=== PATIENT | male | born 1930 | race African-American/Black ===

== ENCOUNTER 2017-11-30 10:54 | Emergency (ER) | payer MEDICARE ==
[2017-11-30 12:14] LABS: #Eosinphils 0.2 thou/uL (0.0-0.7); #Lymphocytes 1.5 thou/uL (1.20-3.40); #Monocytes 0.6 thou/uL (0.11-0.59); #Neutrophils 12.5 thou/uL (1.40-6.50); %Basophils 0.2 % (0.0-1.0); %Eosinophils 1.6 % (0.0-10.0); %Lymphocytes 10.1 % (21.0-51.0); %Monocytes 4.2 % (0.0-10.0); %Neutrophils 83.9 % (42.0-75.0); Hemoglobin 8.2 g/dL (14.0-18.0); Mean Corpuscular HGB CONC 30.7 g/dL (32.0-36.0); Mean Corpuscular Hemoglobin 29.9 pg (27.0-31.0); Mean Corpuscular Volume 97.4 fl (80.0-94.0); Mean Platelet Volume 8.9 fL (7.4-10.4); Platelet Count 295 thou/uL (130-400); RBC Distribution Width 15.7 % (11.5-14.5); Red Blood Cell (RBC) Count 2.74 mill/uL (4.70-6.10); White Blood Cell (WBC) Count 14.9 thou/uL (4.8-10.8)
[2017-11-30 12:32] LABS: ALT (SGPT) 20 U/L (8-55); AST (SGOT) 19 U/L (5-34); Albumin 4.2 g/dL (3.4-4.8); Alkaline Phosphatase 154 U/L (40-150); Anion Gap 11 mmol/L (10-20); BUN (Urea Nitrogen) 28 mg/dL (8.4-25.7); Bilirubin, Total 0.3 mg/dL (0.2-1.2); Calc. Creatinine Clearance 0 mL/min (70-130); Calcium 9.5 mg/dL (7.8-10.44); Carbon Dioxide 25 mmol/L (23-31); Chloride 108 mmol/L (98-107); Estimated GFR-MDRD 43; Globulin 3.3 g/dL (2.4-3.5); Glucose 97 mg/dL (83-110); Potassium 3.8 mmol/L (3.5-5.1); Protein, Total 7.5 g/dL (5.8-8.1); Sodium 140 mmol/L (136-145)
[2017-11-30] MEDS ORDERED: Naproxen 500 MG TAB ONE (14:16)
--- NOTE | 2017-11-30 16:03 | RAD ---
THREE VIEWS LEFT ELBOW 11/30/17 HISTORY: Left upper extremity pain and swelling. 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 No obvious fracture or dislocation is seen. There is osteopenia. There is a large joint effus ion with elevation of both posterior and anterior fat pads. IMPRESSION: 1. Large joint effusion. This can be seen with a radiographically occult fracture, but other e tiologies for joint effusion cannot be excluded. If the patient has history of recent injury, and the re is concern for fracture, followup views of the elbow are recommended in 4-7 days to exclude an occ ult fracture. 2. Osteoarthritis left elbow without acute osseous abnormality appreciated. POS: [facility]
== END 2017-11-30 13:13 | disposition home or self-care (01) ==
LOC: ERS 10:54
DX: M70.32 Other bursitis of elbow, left elbow (principal); I10 Essential (primary) hypertension; M19.90 Unspecified osteoarthritis, unspecified site; F17.210 Nicotine dependence, cigarettes, uncomplicated
CPT/HCPCS: 36415; 80053; 84550; 85025; 85652; 86140

== ENCOUNTER 2018-09-29 14:55 | Emergency (ER) | payer MEDICARE ==
[2018-09-29 15:19] LABS: Actual Bicarbonate (HCO3a) 29.7 mEq/L (22-28); Analyzer IN Cardio ER; Base Excess (BEa) 5.1 mEq/L (-2.0 to +3.0); CO2 Tension 43.7 mmHg (35.0-45.0); Carboxyhemoglobin (COHb) 2.6 gm% (0.0-3.0); Hemoglobin (Hb) 11.9 g/dL (14.0-18.0); O2 Tension (PaO2) 73.4 mmHg (> 60.0); pH, Arterial 7.45 (7.35-7.45)
[2018-09-29 15:22] LABS: ALV-art Gradient 21.705 (0-20); Puncture Site RRA
[2018-09-29 15:31] LABS: #Eosinphils 0.5 thou/uL (0.0-0.7); #Lymphocytes 1.8 thou/uL (1.20-3.40); #Monocytes 0.7 thou/uL (0.11-0.59); #Neutrophils 6.9 thou/uL (1.40-6.50); %Basophils 0.4 % (0.0-1.0); %Eosinophils 4.6 % (0.0-10.0); %Lymphocytes 18.1 % (21.0-51.0); %Monocytes 6.7 % (0.0-10.0); %Neutrophils 70.2 % (42.0-75.0); Hemoglobin 11.1 g/dL (14.0-18.0); Mean Corpuscular HGB CONC 30.6 g/dL (32.0-36.0); Mean Corpuscular Hemoglobin 27.7 pg (27.0-31.0); Mean Corpuscular Volume 90.5 fL (78.0-98.0); Mean Platelet Volume 9.9 fL (7.4-10.4); Platelet Count 300 thou/uL (130-400); RBC Distribution Width 13.9 % (11.5-14.5); Red Blood Cell (RBC) Count 4.03 mill/uL (4.70-6.10); White Blood Cell (WBC) Count 9.8 thou/uL (4.8-10.8)
[2018-09-29 15:56] LABS: ALT (SGPT) 7 U/L (8-55); AST (SGOT) 10 U/L (5-34); Albumin 3.7 g/dL (3.4-4.8); Alkaline Phosphatase 120 U/L (40-150); Anion Gap 12 mmol/L (10-20); BUN (Urea Nitrogen) 23 mg/dL (8.4-25.7); Bilirubin, Total 0.5 mg/dL (0.2-1.2); Calc. Creatinine Clearance 0 mL/min (70-130); Calcium 9.7 mg/dL (7.8-10.44); Carbon Dioxide 29 mmol/L (23-31); Chloride 101 mmol/L (98-107); Estimated GFR-MDRD 44; Globulin 3.6 g/dL (2.4-3.5); Glucose 101 mg/dL (83-110); Potassium 3.3 mmol/L (3.5-5.1); Protein, Total 7.3 g/dL (5.8-8.1); Sodium 139 mmol/L (136-145)
--- NOTE | 2018-09-29 16:04 | RAD ---
RADIOGRAPH CHEST 2 VIEWS: HISTORY: 87-year-old male with dyspnea. FINDINGS: The thoracic aorta is tortuous and ectatic. There is no evidence of air space density, pneumothorax, or pulmonary edema. There is no cardiomegaly or pleural effusion. IMPRESSION: 1. No acute cardiopulmonary findings. 2. Ectasia of thoracic aorta. jn [] POS: [facility]
== END 2018-09-29 17:15 | disposition home or self-care (01) ==
LOC: ERS 14:55
DX: R11.2 Nausea with vomiting, unspecified (principal); I10 Essential (primary) hypertension; M19.90 Unspecified osteoarthritis, unspecified site; F17.220 Nicotine dependence, chewing tobacco, uncomplicated
CPT/HCPCS: 36415; 71046; 80053; 82805; 83880; 84484; 85025; 93005

== ENCOUNTER 2018-12-08 12:11 | Inpatient (IN) | payer MEDICARE ==
[2018-12-08 12:57] LABS: Hemoglobin 12.1 g/dL (14.0-18.0); Mean Corpuscular HGB CONC 31.6 g/dL (32.0-36.0); Mean Corpuscular Hemoglobin 28.6 pg (27.0-31.0); Mean Corpuscular Volume 90.4 fL (78.0-98.0); RBC Distribution Width 17.8 % (11.5-14.5); Red Blood Cell (RBC) Count 4.23 mill/uL (4.70-6.10); White Blood Cell (WBC) Count 17.5 thou/uL (4.8-10.8)
[2018-12-08 13:19] LABS: Anisocytosis SLIGHT = 6-15 cells (100X) (0-5/hpf); Lymphocytes 4 % (21-51); MDiff Complete? YES; Monocytes 4 % (0-10); Neutrophil 92 % (42-75); Platelet Count 324 thou/uL (130-400); Platelet Morphology Comment Appears Adequate
--- NOTE | 2018-12-08 13:25 | CT ---
CT BRAIN WITHOUT CONTRAST: HISTORY: Fall, altered mental status. FINDINGS: Comparison is made with the exam of 05/29/2016. Ventriculomegaly is stable. Mild chronic small-vessel ischemic disease changes are again seen. No e vidence of acute infarct, hemorrhage, midline shift, or abnormal extraaxial fluid collections is note d. The bony calvarium is intact. The visualized paranasal sinuses are well aerated. IMPRESSION: No CT evidence of acute intracranial process. POS: [facility]
--- NOTE | 2018-12-08 13:31 | CT ---
CT CERVICAL SPINE WITHOUT CONTRAST: Date: 12/08/18 HISTORY: Fall. Found down. COMPARISON: CT cervical spine dated 05/29/16. There is chronic height loss of the C2, C3, C4, and C5 vertebral bodies. Chronic superior end plate d eformity of T6. There are erosive changes of the odontoid process. Dense calcifications of the alar ligaments. No acu te fracture or malalignment. Occipital condyles are intact. Odontoid process is without fracture. Oss eous fusion of the bilateral C2-C3 posterior elements. Lung apices are clear. No cervical adenopathy. Moderate vascular calcifications of both carotid bulbs. Prevertebral soft tissues are unremarkable. IMPRESSION: Degenerative changes. No acute fracture or malalignment. POS: [facility]
--- NOTE | 2018-12-08 13:35 | RAD ---
THREE VIEWS LEFT WRIST: DATE: 12/08/2018. HISTORY: Injury after a fall. FINDINGS: There is osteoarthritis involving the 1st carpometacarpal joint and to a lesser extent greater multan gular joint. No fracture or dislocation is appreciated. There is osteopenia. Calcifications of tri angular fibrocartilage are noted. There is mild subcutaneous soft tissue swelling seen dorsal to the wrist. IMPRESSION: 1. No acute osseous abnormality of the left wrist. If the patient continues to experience pain or t here is a high clinical concern for fracture of the navicular bone, followup imaging is advised in 4- 7 days to exclude an occult fracture after conservative management. 2. Osteoarthritis. 3. Calcifications in the region of triangular fibrocartilage. POS: [facility]
--- NOTE | 2018-12-08 13:36 | RAD ---
THREE VIEWS LEFT HAND: HISTORY: Fall, left hand pain. FINDINGS: AP, lateral, and oblique views of the left hand obtained. Images demonstrate osteoarthritis involving the 1st carpometacarpal joint as well as the 2nd metacarp ophalangeal joint. No evidence of acute fracture is seen. IMPRESSION: Osteoarthritis left hand with no evidence of acute fracture seen. POS: [facility]
--- NOTE | 2018-12-08 13:39 | RAD ---
FOUR VIEWS RIGHT KNEE: HISTORY: Dimension, fall. FINDINGS: AP, lateral, and both oblique views right knee are obtained. Images demonstrate extensive vascular calcification in the right superficial femoral artery. Extensi ve popliteal calcifications seen. No evidence of acute right knee fractures, subluxations, or bony lesions seen. There does appear to be a joint effusion in the suprapatellar bursa. POS: [facility]
[2018-12-08] MEDS ORDERED: Acetaminophen 500 MG TAB ONE ×2 (13:40)
[2018-12-08 13:54] LABS: Albumin 3.4 g/dL (3.4-4.8)
[2018-12-08 13:55] LABS: Chloride 96 mmol/L (98-107); Potassium 3.2 mmol/L (3.5-5.1); Sodium 136 mmol/L (136-145)
[2018-12-08 13:56] LABS: Calcium 9.9 mg/dL (7.8-10.44); Glucose 94 mg/dL (83-110)
[2018-12-08 13:57] LABS: Globulin 3.9 g/dL (2.4-3.5); Protein, Total 7.3 g/dL (5.8-8.1)
[2018-12-08 13:58] LABS: Anion Gap 17 mmol/L (10-20); Bilirubin, Total 1.6 mg/dL (0.2-1.2); Carbon Dioxide 26 mmol/L (23-31)
[2018-12-08 13:59] LABS: Alkaline Phosphatase 136 U/L (40-150)
[2018-12-08 14:00] LABS: Calc. Creatinine Clearance 0 mL/min (70-130); Estimated GFR-MDRD 54
[2018-12-08 14:01] LABS: BUN (Urea Nitrogen) 26 mg/dL (8.4-25.7)
[2018-12-08 14:02] LABS: ALT (SGPT) 17 U/L (8-55); AST (SGOT) 25 U/L (5-34); CK (CPK) 67 U/L (30-200)
--- NOTE | 2018-12-08 14:13 | RAD ---
LEFT KNEE 4 VIEWS: Date: 12/08/18 HISTORY: Fall, left knee pain. FINDINGS/IMPRESSION: Degenerative changes are present. There is chondrocalcinosis. No acute fracture or dislocation is charito ntified. Vascular calcifications are noted. POS: [facility]
--- NOTE | 2018-12-08 14:15 | RAD ---
LEFT ELBOW 4 VIEWS: HISTORY: Fall. COMPARISON: None. FINDINGS: There is a large joint effusion. Impacted radial neck fracture. Chronic ossification of the annular ligament. Chronic medial epicondylitis. IMPRESSION: Mildly impacted radial neck fracture extending to the radial head seen on the lateral radiograph invo lving 15-20% of the articular surface. POS: [facility]
[2018-12-08 17:08] VITALS: BMI 32.4
[2018-12-08 18:21] LABS: Bilirubin Small (Negative); Blood, Urine Negative (Negative); Clarity CLEAR (Clear); Glucose, Urine (Dipstick) Negative (Negative); Leukocyte Negative (Negative); Nitrite Negative (Negative); Protein, Urine (Dipstick) 30 mg/dL (Neg-Trace); Specific Gravity, Urine 1.017 (1.002-1.036)
[2018-12-08 18:22] LABS: Bacteria/HPF None Seen HPF (None Seen); Hyaline Casts/LPF 0-3 HYALINE CAST LPF (0-3 Hyaline); Pathc Cast-AUWi Flag 0.29 (0-2.49); RBC/HPF 0-3 HPF (0-3); Squamous Epithelial None Seen HPF (0-3); WBC/HPF None Seen HPF (0-3)
--- NOTE | 2018-12-08 22:05 | HP ---
CHIEF COMPLAINT: Fall with fractured left arm, possible syncopal episode. HISTORY OF PRESENT ILLNESS: The patient is an 88-year-old male with dementia, who cannot recall how he ended up from bed to the floor, but all he knows is he woke up on the floor and he had a sore left arm. Did not even know how long he was there before finally he was found by a relative. He does have left hand pain and pain in his right knee, but he cannot recall what happened. Unfortunately, he has been living on his own for a while despite recommendations from his medical doctor that he will be put into a shelter. He was a no-show visit to Dr. Krishna on 11/13. The last time he had been examined in the office was 09/08/2018. PAST MEDICAL HISTORY: Significant for the aforementioned dementia, hypertension, dyslipidemia, and vitamin D deficiency. He has a history of gout and atrial fibrillation. He also has a history of renal insufficiency, degenerative joint disease, and medical noncompliance. He has a history of chronic anemia as well. He also has a history of glaucoma. PAST SURGICAL HISTORY: Includes right-sided inguinal hernia repair, cataract surgery. PSYCHIATRIC HISTORY: Significant for the aggressive dementia that he has had going on 2 years now. SOCIAL HISTORY: Lives alone. Drinks socially. He is a former drug abuser, using marijuana. Currently uses tobacco, chews it and smokes it. ALLERGIES: HE HAS NO KNOWN DRUG ALLERGIES. MEDICATIONS: His medications at the time of hospitalization include; 1. Amlodipine 5 mg daily. 2. Aspirin 81 mg daily. 3. Atorvastatin 40 mg daily. 4. Carvedilol 12.5 mg p.o. b.i.d. 5. Vitamin D 2000 units daily. 6. Namenda 10 mg b.i.d.. But, it is unsure if he takes any of these medications correctly. REVIEW OF SYSTEMS: Completely unreliable. GENERAL: He does report a fall. He does report injury to his left arm. He denies fever or chills. HEENT: Denies pain in eyes, ears, nose, or throat without any lesions or drainage. CARDIOVASCULAR: Denies chest pain or palpitations. RESPIRATORY: Denies cough, shortness of breath, or dyspnea. GASTROINTESTINAL: Denies nausea, vomiting, or diarrhea. GENITOURINARY: Denies blood in urine or stool. SKIN: Denies new rashes or lesions. MUSCULOSKELETAL: Significant for the left arm pain and diffuse arthritis. NEUROLOGICAL: Denies headaches, blurred vision, or trouble with mentation. PHYSICAL EXAMINATION: VITAL SIGNS: At the time of admission; blood pressure 144/87, pulse 81, respirations 20, and temperature 98. Pain scale unable to determine. He is not sure, sometimes it hurts and sometimes it does not. GENERAL: Obese male, alert, does not know where he is. He does know his name. Disoriented to place and date. HEENT: Normocephalic, atraumatic. Pupils with diminished reactivity to light with arcus senilis bilaterally. No evidence of trauma. TMs, nares, and pharynx are clear. NECK: Supple. CHEST: Clear to auscultation. HEART: Regular rate and rhythm. ABDOMEN: Soft, nontender, without organomegaly. GENITOURINARY: Deferred. EXTREMITIES: Left arm is in a sugar-tong splint. Right arm shows normal range of motion. Nontender. Palpation of both lower extremities show no tenderness. No clubbing, cyanosis, or edema. SKIN: Without rashes or lesions. NEUROLOGIC: Cranial nerves are intact. Gait and cerebral function are untested. Sensory exam is intact. Mental status is significant for significant memory loss. DIAGNOSTIC DATA: The lab work since admission; x-rays of the left arm show fracture of the head of the radius and down the shaft on the left arm. CT of the head is unremarkable. CT and x-rays of the neck are unremarkable. Other x-rays of his extremities are unremarkable. WBCs 17,000, hemoglobin 12.1, hematocrit 38.2, and platelets at 324. Sodium 136, potassium 3.2, chloride 96, CO2 of 26, BUN is 26, creatinine 1.48 with a GFR 54, this is significantly improved from his last evaluation of his kidneys in August when he was taken off his arthritis medicine and allopurinol. Urine shows no significant findings. ASSESSMENT: 1. Unwitnessed fall. 2. Fracture of left radial head. 3. Significant dementia. 4. During nursing evaluation, heart rate in the 40s was noted, so we have possible episodes of bradycardia, history of atrial fibrillation, off anticoagulation due to noncompliance of medications and osteoarthritis, off all NSAIDs due to renal dysfunction. The BUN and creatinine; On August 06, 2018, BUN was 34, creatinine 2.38 with a GFR 33. PLAN: Echocardiogram. Observation on moving to telemetry, so that we can watch for episodes of bradycardia. Rule out sick sinus syndrome as an etiology for syncope and serially re-evaluate him. Ultimately, he will obtain shelter placement. Job ID: [id number]
[2018-12-09 06:06] LABS: #Eosinphils 0.2 thou/uL (0.0-0.7); #Monocytes 1.1 thou/uL (0.11-0.59); #Neutrophils 9.6 thou/uL (1.40-6.50); %Basophils 0.1 % (0.0-1.0); %Eosinophils 1.8 % (0.0-10.0); %Lymphocytes 8.7 % (21.0-51.0); %Monocytes 8.8 % (0.0-10.0); %Neutrophils 80.6 % (42.0-75.0); Hemoglobin 9.8 g/dL (14.0-18.0); Mean Corpuscular HGB CONC 31.5 g/dL (32.0-36.0); Mean Corpuscular Hemoglobin 28.3 pg (27.0-31.0); Mean Corpuscular Volume 89.9 fL (78.0-98.0); Mean Platelet Volume 9.8 fL (7.4-10.4); Platelet Count 339 thou/uL (130-400); RBC Distribution Width 14.7 % (11.5-14.5); Red Blood Cell (RBC) Count 3.46 mill/uL (4.70-6.10)
[2018-12-09 06:22] LABS: Anion Gap 13 mmol/L (10-20); BUN (Urea Nitrogen) 25 mg/dL (8.4-25.7); CK (CPK) 51 U/L (30-200); Calc. Creatinine Clearance 39 mL/min (70-130); Carbon Dioxide 25 mmol/L (23-31); Chloride 103 mmol/L (98-107); Estimated GFR-MDRD 54; Glucose 99 mg/dL (83-110); Sodium 138 mmol/L (136-145)
[2018-12-09] MEDS: traMADol HCl 50 MG TAB PO PRN (07:36)
[2018-12-09] MEDS: Hydrochlorothiazide 25 MG TAB PO SCH (09:08)
[2018-12-09] MEDS ORDERED: Acetaminophen/Codeine 30-300mg Tablet PO PRN (12:44)
[2018-12-09] MEDS ORDERED: Acetaminophen/Codeine 30-300mg Tablet PO SCH (12:45)
[2018-12-09] MEDS: Potassium Chloride 20 MEQ TAB PO SCH ×2 (13:01→19:20)
[2018-12-10] MEDS: traMADol HCl 50 MG TAB PO PRN ×3 (01:07→13:53)
[2018-12-10 05:57] LABS: #Eosinphils 0.4 thou/uL (0.0-0.7); #Lymphocytes 1.7 thou/uL (1.20-3.40); #Monocytes 0.8 thou/uL (0.11-0.59); #Neutrophils 8.1 thou/uL (1.40-6.50); %Basophils 0.1 % (0.0-1.0); %Eosinophils 3.5 % (0.0-10.0); %Monocytes 7.6 % (0.0-10.0); %Neutrophils 73.8 % (42.0-75.0); Hemoglobin 9.4 g/dL (14.0-18.0); Mean Corpuscular HGB CONC 31.1 g/dL (32.0-36.0); Mean Corpuscular Hemoglobin 27.9 pg (27.0-31.0); Mean Corpuscular Volume 89.9 fL (78.0-98.0); Mean Platelet Volume 9.8 fL (7.4-10.4); Platelet Count 364 thou/uL (130-400); RBC Distribution Width 14.8 % (11.5-14.5); Red Blood Cell (RBC) Count 3.35 mill/uL (4.70-6.10)
[2018-12-10 06:25] LABS: Anion Gap 14 mmol/L (10-20); BUN (Urea Nitrogen) 21 mg/dL (8.4-25.7); Calc. Creatinine Clearance 44 mL/min (70-130); Calcium 9.2 mg/dL (7.8-10.44); Carbon Dioxide 25 mmol/L (23-31); Chloride 101 mmol/L (98-107); Estimated GFR-MDRD 64; Glucose 86 mg/dL (83-110); Iron 16 ug/dL (65-175); Potassium 3.1 mmol/L (3.5-5.1); Sodium 137 mmol/L (136-145)
[2018-12-10] MEDS: Potassium Chloride 20 MEQ TAB PO SCH ×3 (08:54→20:50)
[2018-12-10] MEDS: Hydrochlorothiazide 25 MG TAB PO SCH (08:55)
--- NOTE | 2018-12-10 13:32 | PQF ---
DATE: 12-10-18 ATTN: DR. DEIDRE ISLAS Please exercise your independent, professional judgment in responding to the clarification form. Clinical indicators are provided on the bottom of this form for your review Please check appropriate box(s): [ ] Acute Renal Failure (ARF) / Acute Kidney Injury (NAINA) [ x ] Acute on Chronic Renal Failure please specify Stage of CKD __II (see below) [ ] CKD without ARF/NAINA please specify Stage of CKD [ ] Other diagnosis [ ] Unable to determine In addition, please specify: Present on Admission (POA): [ ] Yes [ ] No [ ] Unable to determine National Kidney Foundation Guidelines for CKD Staging Stage I Kidney damage with normal or increased GFR GFR > 90 Stage II Kidney damage with mildly decreased GFR GFR 60-89 Stage III Kidney damage with moderately decreased GFR GFR 30-59 Stage IV Kidney damage with severely decreased GFR GFR 16-29 Stage V Kidney failure GFR<15 ESRD End Stage Renal Disease On dialysis Acute Renal Failure/Acute Kidney Failure defined as: Increases in SCr by (>) 0.3 mg/dl within 48 hours OR- Increases in SCr by (>) 1.5 times baseline, known or presumed to have occurred within the prior 7 days OR- Urine volume < 0.5 ml/kg/hour for 6 hours (KDIGO supplement 2012 for RIFLE/HARIKA criteria) For continuity of documentation, please document condition throughout progress notes and discharge summary. Thank You. CLINICAL INDICATORS - SIGNS / SYMPTOMS / LABS H&P: HX OF RENAL INSUFFICIENCY, OFF ALL NSAIDS DUE TO RENAL DYSFUNCTION, THE BUN AND CREATININE ON AUG 06 2018: BUN WAS 34, CREATININE 2.38 WITH GFR 33 GFR: 2-18-19: 54 2--: 54 12-10-18: 64 CREATININE: 2-18-19: 1.48 2--19: 1.49 2-: 1.29 BUN: 2-18-19: 26 2-19-18: 25 2-20-18: 21 RISK FACTORS: H&P: HX OF RENAL INSUFFICIENCY, H DEMENTIA, HTN, DYSLIPIDEMIA , VIT D DEF, GOUT, A FIB, MEDICAL NONCOMPLIANCE, GLAUCOMA TREATMENTS: ER: IVF NS X 2 MAR: KDUR PO (This form is maintained as a part of the permanent medical record) 2014 [employer] All Rights Reserved JOSEP [email or web address] Office: [phone] [facility]
[2018-12-11] MEDS ORDERED: Lorazepam 2 MG/ML VIAL SLOW IVP PRN (06:55)
[2018-12-11] MEDS: Ziprasidone 20 MG CAP PO SCH ×2 (07:35→22:23)
[2018-12-11] MEDS: Potassium Chloride 20 MEQ TAB PO SCH ×3 (08:19→18:13)
[2018-12-11] MEDS: Hydrochlorothiazide 25 MG TAB PO SCH (08:19)
[2018-12-11 14:17] LABS: #Eosinphils 0.2 thou/uL (0.0-0.7); #Lymphocytes 1.8 thou/uL (1.20-3.40); #Neutrophils 10.4 thou/uL (1.40-6.50); %Basophils 0.1 % (0.0-1.0); %Eosinophils 1.4 % (0.0-10.0); %Lymphocytes 13.1 % (21.0-51.0); %Monocytes 7.8 % (0.0-10.0); %Neutrophils 77.7 % (42.0-75.0); Mean Corpuscular HGB CONC 30.9 g/dL (32.0-36.0); Mean Corpuscular Hemoglobin 28.2 pg (27.0-31.0); Mean Corpuscular Volume 91.1 fL (78.0-98.0); Mean Platelet Volume 9.3 fL (7.4-10.4); Platelet Count 426 thou/uL (130-400); RBC Distribution Width 14.8 % (11.5-14.5); Red Blood Cell (RBC) Count 3.91 mill/uL (4.70-6.10); White Blood Cell (WBC) Count 13.4 thou/uL (4.8-10.8)
[2018-12-11 15:11] LABS: Anion Gap 14 mmol/L (10-20); BUN (Urea Nitrogen) 20 mg/dL (8.4-25.7); Calc. Creatinine Clearance 41 mL/min (70-130); Calcium 9.9 mg/dL (7.8-10.44); Carbon Dioxide 27 mmol/L (23-31); Chloride 101 mmol/L (98-107); Estimated GFR-MDRD 58; Glucose 76 mg/dL (83-110); Potassium 4.4 mmol/L (3.5-5.1); Sodium 138 mmol/L (136-145)
[2018-12-12] MEDS: Hydrochlorothiazide 25 MG TAB PO SCH (09:28)
[2018-12-12] MEDS: Potassium Chloride 20 MEQ TAB PO SCH ×3 (09:28→18:17)
[2018-12-12] MEDS: Ziprasidone 20 MG CAP PO SCH ×2 (09:28→20:07)
[2018-12-12] MEDS ORDERED: Lorazepam 0.5 MG TAB PO PRN (17:34)
[2018-12-12] MEDS ORDERED: Lorazepam 2 MG/ML VIAL SLOW IVP PRN (17:35)
[2018-12-12] MEDS ORDERED: Lorazepam 2 MG/ML VIAL IM PRN (17:35)
[2018-12-13 05:43] LABS: #Eosinphils 0.4 thou/uL (0.0-0.7); #Lymphocytes 1.8 thou/uL (1.20-3.40); #Neutrophils 8.9 thou/uL (1.40-6.50); %Basophils 0.3 % (0.0-1.0); %Lymphocytes 14.5 % (21.0-51.0); %Monocytes 8.5 % (0.0-10.0); %Neutrophils 73.6 % (42.0-75.0); Hemoglobin 9.7 g/dL (14.0-18.0); Mean Corpuscular HGB CONC 30.5 g/dL (32.0-36.0); Mean Corpuscular Hemoglobin 27.2 pg (27.0-31.0); Mean Corpuscular Volume 89.5 fL (78.0-98.0); Mean Platelet Volume 9.3 fL (7.4-10.4); Platelet Count 448 thou/uL (130-400); Red Blood Cell (RBC) Count 3.57 mill/uL (4.70-6.10)
[2018-12-13 05:57] LABS: Anion Gap 13 mmol/L (10-20); BUN (Urea Nitrogen) 21 mg/dL (8.4-25.7); Calc. Creatinine Clearance 45 mL/min (70-130); Calcium 9.2 mg/dL (7.8-10.44); Carbon Dioxide 26 mmol/L (23-31); Chloride 102 mmol/L (98-107); Estimated GFR-MDRD 65; Glucose 88 mg/dL (83-110); Potassium 3.6 mmol/L (3.5-5.1); Sodium 137 mmol/L (136-145)
[2018-12-13] MEDS: traMADol HCl 50 MG TAB PO PRN (08:39)
[2018-12-13] MEDS: Hydrochlorothiazide 25 MG TAB PO SCH (08:40)
[2018-12-13] MEDS: Potassium Chloride 20 MEQ TAB PO SCH (08:41)
[2018-12-13] MEDS: Ziprasidone 20 MG CAP PO SCH ×2 (08:41→20:01)
--- NOTE | 2018-12-13 15:27 | EKG ---
Test Reason : Blood Pressure : / mmHG Vent. Rate : 076 BPM Atrial Rate : 076 BPM P-R Int : 172 ms QRS Dur : 160 ms QT Int : 452 ms P-R-T Axes : -11 -01 129 degrees QTc Int : 508 ms Sinus rhythm with sinus arrhythmia with occasional Premature ventricular complexes Left bundle branch block No STEMI Abnormal ECG Confirmed by DANIEL Barksdale, KAREEN ([id number]), newspaper managing editor SAVANNA PENALOZA ([id number]) on 12/13/2018 3:27:07 PM Referred By: Confirmed By:KAREEN SANCHEZ M.D.
--- NOTE | 2018-12-13 15:33 | CON ---
DATE OF CONSULTATION: 12/13/2018 HISTORY OF PRESENT ILLNESS: Mr. Avelar is an 88-year-old male who has dementia and cannot provide any significant history. He reportedly fell injuring his left arm on 12/08, five days ago, had x-rays obtained of the left upper extremity. There was a fracture of the radial head noted. He was placed in a sugar-tong splint. The patient has been trying to take the splint off. I was consulted for the fracture of the radial head. PHYSICAL EXAMINATION: The splint was removed. The patient has mild swelling in the entire left upper extremity. He is nontender over the radial head. He is able to actively flex and extend the elbow and has active pronation and supination. His range of motion is not full, but it is not painful. IMAGING DATA: I reviewed the x-rays of the left elbow. He has some degenerative changes. There was a previous radial head fracture that involved 10%, maybe 15% of the articular surface, but there is signs of fracture healing indicating that the fracture is at least several weeks if not several months old. IMPRESSION: Old radial head fracture of the left elbow. PLAN: The splint was removed. The patient does not require any type of immobilization. He can use his left arm as tolerated. The fracture is healed. No further followup is needed. Job ID: [id number]
[2018-12-14 06:14] LABS: #Basophils 0.1 thou/uL (0.0-0.2); #Eosinphils 0.4 thou/uL (0.0-0.7); #Lymphocytes 1.9 thou/uL (1.20-3.40); #Neutrophils 7.5 thou/uL (1.40-6.50); %Basophils 0.5 % (0.0-1.0); %Eosinophils 3.9 % (0.0-10.0); %Lymphocytes 17.8 % (21.0-51.0); %Neutrophils 68.8 % (42.0-75.0); Hemoglobin 10.5 g/dL (14.0-18.0); Mean Corpuscular HGB CONC 30.7 g/dL (32.0-36.0); Mean Corpuscular Hemoglobin 27.8 pg (27.0-31.0); Mean Corpuscular Volume 90.4 fL (78.0-98.0); Mean Platelet Volume 9.2 fL (7.4-10.4); Platelet Count 472 thou/uL (130-400); RBC Distribution Width 14.8 % (11.5-14.5); Red Blood Cell (RBC) Count 3.77 mill/uL (4.70-6.10); White Blood Cell (WBC) Count 10.8 thou/uL (4.8-10.8)
[2018-12-14 06:38] LABS: Anion Gap 14 mmol/L (10-20); BUN (Urea Nitrogen) 15 mg/dL (8.4-25.7); Calc. Creatinine Clearance 48 mL/min (70-130); Calcium 9.6 mg/dL (7.8-10.44); Carbon Dioxide 26 mmol/L (23-31); Chloride 101 mmol/L (98-107); Estimated GFR-MDRD 70; Glucose 88 mg/dL (83-110); Sodium 137 mmol/L (136-145)
[2018-12-14] MEDS: Hydrochlorothiazide 25 MG TAB PO SCH (08:47)
[2018-12-14] MEDS: Potassium Chloride 20 MEQ TAB PO SCH (08:47)
[2018-12-14] MEDS: Ziprasidone 20 MG CAP PO SCH ×2 (08:47→20:14)
[2018-12-14] MEDS: traMADol HCl 50 MG TAB PO PRN (15:29)
[2018-12-14] MEDS: Ferrous Sulfate 325 MG TAB PO SCH (20:11)
[2018-12-15 06:32] LABS: #Basophils 0.1 thou/uL (0.0-0.2); #Eosinphils 0.4 thou/uL (0.0-0.7); #Lymphocytes 1.9 thou/uL (1.20-3.40); #Monocytes 0.8 thou/uL (0.11-0.59); #Neutrophils 6.7 thou/uL (1.40-6.50); %Basophils 0.6 % (0.0-1.0); %Eosinophils 3.9 % (0.0-10.0); %Lymphocytes 19.2 % (21.0-51.0); %Monocytes 8.3 % (0.0-10.0); Hemoglobin 10.3 g/dL (14.0-18.0); Mean Corpuscular HGB CONC 31.3 g/dL (32.0-36.0); Mean Corpuscular Hemoglobin 28.1 pg (27.0-31.0); Mean Corpuscular Volume 89.8 fL (78.0-98.0); Mean Platelet Volume 9.5 fL (7.4-10.4); Platelet Count 478 thou/uL (130-400); Red Blood Cell (RBC) Count 3.67 mill/uL (4.70-6.10); White Blood Cell (WBC) Count 9.9 thou/uL (4.8-10.8)
[2018-12-15] MEDS: Hydrochlorothiazide 25 MG TAB PO SCH (09:01)
[2018-12-15] MEDS: Potassium Chloride 20 MEQ TAB PO SCH (09:01)
[2018-12-15] MEDS: Ferrous Sulfate 325 MG TAB PO SCH (09:01)
[2018-12-15] MEDS: Ziprasidone 20 MG CAP PO SCH (09:02)
[2018-12-15 11:40] VITALS: BP 145/67; TEMP 98.1
== END 2018-12-15 13:20 | DRG 563 ==
LOC: ERS 12:11 → T4-B 14:59 → OBSVTOIN 21:17 → IMCU/EMU 21:42 → T4-B 12-12 17:18
PROVIDERS: ADMIT Specialist; ATTEND Specialist
DX: S52.125A Nondisplaced fracture of head of left radius, initial encounter for closed fracture (principal); F05 Delirium due to known physiological condition; N17.9 Acute kidney failure, unspecified; F03.91 Unspecified dementia, unspecified severity, with behavioral disturbance; R55 Syncope and collapse; E55.9 Vitamin D deficiency, unspecified; M10.9 Gout, unspecified; I48.91 Unspecified atrial fibrillation; M19.90 Unspecified osteoarthritis, unspecified site; I12.9 Hypertensive chronic kidney disease with stage 1 through stage 4 chronic kidney disease, or unspecified chronic kidney disease; N18.2 Chronic kidney disease, stage 2 (mild); E87.6 Hypokalemia; H40.9 Unspecified glaucoma; D50.9 Iron deficiency anemia, unspecified; F17.220 Nicotine dependence, chewing tobacco, uncomplicated; Z79.899 Other long term (current) drug therapy; Z79.82 Long term (current) use of aspirin; W06.XXXA Fall from bed, initial encounter; Y92.013 Bedroom of single-family (private) house as the place of occurrence of the external cause; E78.5 Hyperlipidemia, unspecified; Z98.49 Cataract extraction status, unspecified eye; Z60.2 Problems related to living alone; Z78.1 Physical restraint status; R00.1 Bradycardia, unspecified
CPT/HCPCS: 29125; 36415; 70450; 72125; 80048; 80053; 81003; 81015; 82550; 82607; 83540; 85025; 93005; 93306; 96360; 96361; J2060

== ENCOUNTER 2019-04-11 16:56 | Emergency (ER) | payer MEDICARE ==
[2019-04-11 17:36] LABS: #Eosinphils 0.2 thou/uL (0.0-0.7); #Lymphocytes 1.8 thou/uL (1.20-3.40); #Monocytes 1.1 thou/uL (0.11-0.59); #Neutrophils 11.7 thou/uL (1.40-6.50); %Basophils 0.3 % (0.0-1.0); %Eosinophils 1.5 % (0.0-10.0); %Lymphocytes 12.2 % (21.0-51.0); %Monocytes 7.1 % (0.0-10.0); Hemoglobin 12.3 g/dL (14.0-18.0); Mean Corpuscular HGB CONC 31.8 g/dL (32.0-36.0); Mean Corpuscular Hemoglobin 29.3 pg (27.0-31.0); Mean Corpuscular Volume 92.2 fL (78.0-98.0); Mean Platelet Volume 10.5 fL (7.4-10.4); Platelet Count 277 thou/uL (130-400); RBC Distribution Width 15.5 % (11.5-14.5); Red Blood Cell (RBC) Count 4.18 mill/uL (4.70-6.10); White Blood Cell (WBC) Count 14.9 thou/uL (4.8-10.8)
--- NOTE | 2019-04-11 17:48 | RAD ---
XR Knee Rt 4 View STANDARD History: Knee pain Comparison: Knee radiograph November 2018 Findings: Moderate medial compartment joint space narrowing. Chondrocalcinosis. Tricompartmental oste ophytes. Moderate effusion. Dense vascular calcifications. Impression: Advanced medial compartment degenerative changes. No acute fracture or malalignment.
--- NOTE | 2019-04-11 17:49 | RAD ---
XR Hip Rt 2-3 View History: Pain Comparison: None. Findings: No acute fracture or malalignment. Femoral neck is intact. Moderate vascular calcifications . Impression: No acute fracture.
--- NOTE | 2019-04-11 17:50 | RAD ---
XR Chest 1 View Portable History: Fever Comparison: Radiograph 2016 Findings: Heart size is enlarged. No pneumothorax. No effusion. No acute osseous abnormality. Impression: Moderate cardiomegaly.
[2019-04-11 17:53] LABS: Acetaminophen Less than 6.0 mcg/mL (10.0-30.0); Alcohol Less than 10 mg/dL (Less than 10); Salicylate Less than 8.0 mg/dL (15.0-30.0)
[2019-04-11 17:54] LABS: ALT (SGPT) 14 U/L (8-55); AST (SGOT) 16 U/L (5-34); Albumin 3.7 g/dL (3.4-4.8); Alkaline Phosphatase 101 U/L (40-150); Anion Gap 15 mmol/L (10-20); BUN (Urea Nitrogen) 29 mg/dL (8.4-25.7); Bilirubin, Total 0.5 mg/dL (0.2-1.2); Calc. Creatinine Clearance 0 mL/min (70-130); Calcium 10.3 mg/dL (7.8-10.44); Carbon Dioxide 23 mmol/L (23-31); Chloride 101 mmol/L (98-107); Estimated GFR-MDRD 54; Globulin 3.9 g/dL (2.4-3.5); Glucose 86 mg/dL (83-110); Potassium 4.4 mmol/L (3.5-5.1); Protein, Total 7.6 g/dL (5.8-8.1); Sodium 135 mmol/L (136-145)
[2019-04-11 17:59] LABS: CRP (Inflammatory) 17.58 mg/dL (= or < 0.5)
[2019-04-11] MEDS ORDERED: Lidocaine 1% (PF) 30 ML VIAL ONE (19:13)
[2019-04-11 21:24] LABS: Bilirubin Negative (Negative); Blood, Urine Trace (Negative); Clarity CLEAR (Clear); Glucose, Urine (Dipstick) Negative (Negative); Leukocyte Negative (Negative); Nitrite Negative (Negative); Protein, Urine (Dipstick) 30 mg/dL (Neg-Trace); Specific Gravity, Urine 1.018 (1.002-1.036); Urobilinogen 0.2 mg/dL (0.2-1.0); pH, Urine 5.5 (5.0-9.0)
[2019-04-11 21:26] LABS: Bacteria/HPF None Seen HPF (None Seen); Hyaline Casts/LPF 0-3 HYALINE CAST LPF (0-3 Hyaline); RBC/HPF 0-3 HPF (0-3); Squamous Epithelial 0-3 HPF (0-3); WBC/HPF 0-3 HPF (0-3)
[2019-04-11 21:36] LABS: Amphetamine Not Detected (NotDetected); Barbiturates Screen Not Detected (NotDetected); Benzodiazepine Screen Not Detected (NotDetected); Cocaine Metabolite Screen Not Detected (NotDetected); Medtox Control Line Valid? VALID (VALID); Medtox Reader # READER 1; Methadone Not Detected (NotDetected); Methamphetamine Not Detected (NotDetected); Opiate Screen Not Detected (NotDetected); Oxycodone Screen Not Detected (NotDetected); Phencyclidine (PCP) Not Detected (NotDetected); THC/Cannabinoid Screen Not Detected (NotDetected); Tricyclic Screen Not Detected (NotDetected)
--- NOTE | 2019-04-17 12:32 | EKG ---
Test Reason : Blood Pressure : / mmHG Vent. Rate : 088 BPM Atrial Rate : 093 BPM P-R Int : 000 ms QRS Dur : 142 ms QT Int : 418 ms P-R-T Axes : 000 -21 155 degrees QTc Int : 505 ms Wide QRS rhythm Left bundle branch block Abnormal ECG Confirmed by TERESA CASTAÑEDA ([id number]), photograph editor SHORTY CALLAWAY ([id number]) on 04/17/2019 12:31:35 PM Referred By: Confirmed By:TERESA CASTAÑEDA
== END 2019-04-11 23:52 ==
LOC: ERS 16:56
DX: M25.561 Pain in right knee (principal); I10 Essential (primary) hypertension; M10.9 Gout, unspecified; F03.90 Unspecified dementia, unspecified severity, without behavioral disturbance, psychotic disturbance, mood disturbance, and anxiety; F17.220 Nicotine dependence, chewing tobacco, uncomplicated; Z79.891 Long term (current) use of opiate analgesic; Z79.899 Other long term (current) drug therapy
CPT/HCPCS: 71045; 80053; 80306; 80307; 81003; 81015; 82550; 83690; 84484; 85025; 85652; 86140; 87086; 93005; 96360; J2001

== ENCOUNTER 2019-05-01 15:02 | Inpatient (IN) | payer MEDICARE ==
[2019-05-01] MEDS ORDERED: Piperacillin/Tazobactam 4.5 GM VIAL ONE (15:40)
[2019-05-01 15:48] LABS: Hemoglobin 10.1 g/dL (14.0-18.0); Mean Corpuscular HGB CONC 31.1 g/dL (32.0-36.0); Mean Corpuscular Volume 93.2 fL (78.0-98.0); Mean Platelet Volume 10.6 fL (7.4-10.4); Platelet Count 300 thou/uL (130-400); RBC Distribution Width 15.3 % (11.5-14.5); Red Blood Cell (RBC) Count 3.48 mill/uL (4.70-6.10); White Blood Cell (WBC) Count 33.5 thou/uL (4.8-10.8)
[2019-05-01 16:01] LABS: ALT (SGPT) 112 U/L (8-55); AST (SGOT) 92 U/L (5-34); Alkaline Phosphatase 193 U/L (40-150); Anion Gap 12 mmol/L (10-20); BUN (Urea Nitrogen) 50 mg/dL (8.4-25.7); Calc. Creatinine Clearance 0 mL/min (70-130); Calcium 10.3 mg/dL (7.8-10.44); Carbon Dioxide 25 mmol/L (23-31); Chloride 102 mmol/L (98-107); Estimated GFR-MDRD 41; Globulin 3.9 g/dL (2.4-3.5); Glucose 80 mg/dL (83-110); Potassium 5.4 mmol/L (3.5-5.1); Protein, Total 6.9 g/dL (5.8-8.1); Sodium 134 mmol/L (136-145)
[2019-05-01 16:03] LABS: Anisocytosis SLIGHT = 6-15 cells (100X) (0-5/hpf); Band 29 % (5-11); Lymphocytes 1 % (21-51); MDiff Complete? YES; Metamyelocyte 1 % (0-0); Monocytes 2 % (0-10); Neutrophil 67 % (42-75); Nucleated RBC 1 % (0); Ovalocytes SLIGHT = 2-5 cells (100X) (0-1/hpf); Platelet Morphology Comment Appears Adequate; Polychromasia SLIGHT = 2-3 cells (100X) (0-2/hpf); Vacuoles SLIGHT
--- NOTE | 2019-05-01 16:09 | RAD ---
UPRIGHT PORTABLE CHEST 1 VIEW: Date: 05/01/19 HISTORY: Follow-up pneumonia. COMPARISON: 04/11/19. FINDINGS: Extensive alveolar parenchymal change with confluence in the right upper lobe and right perihilar reg ion, as well as some patchy parenchymal changes in the right lower lobe, with small right pleural eff usion. Heart size is stable. The left lung remains clear. IMPRESSION: Extensive right lung pneumonia with large area of confluent opacity in the right upper lobe. Small ri ght pleural effusion. Continued short-term follow-up for clearing. POS: [facility]
[2019-05-01] MEDS ORDERED: Acetaminophen 500 MG TAB ONE (16:10)
[2019-05-01 16:29] LABS: Bacteria/HPF None Seen HPF (None Seen); Bilirubin 1+ (Negative); Blood, Urine 1+ (Negative); Clarity Clear (Clear); Glucose, Urine (Dipstick) Normal (Negative); Leukocyte 25 Leu/uL (Negative); Mucous/LPF Rare LPF (<2+); Nitrite Negative (Negative); Protein, Urine (Dipstick) 50 mg/dL (Neg-Trace); Squamous Epithelial None Seen HPF (0-3); WBC/HPF 0-3 HPF (0-3)
[2019-05-01] MEDS ORDERED: Fentanyl 100 MCG/2 ML VIAL ONE ×2 (16:57→18:38)
--- NOTE | 2019-05-01 17:18 | RAD ---
AP PELVIS: Date: 05/01/19 INDICATION: History of pelvic pain. IMPRESSION: No acute fracture or subluxation is evident. There is stable vascular calcification. Visualized bowel gas pattern is nonspecific. POS: [facility]
--- NOTE | 2019-05-01 17:19 | RAD ---
XR Hip Rt 2-3 View: 05/01/2019 4:55 PM CLINICAL INDICATION: Back and pelvic pain COMPARISON: None. FINDINGS: Fracture:Discrete evidence for acute fracture not visualized Arthropathy:Scattered osteoarthritis is seen Incidental findings:Vascular calcification IMPRESSION: 1. No displaced fracture of the right hip visualized.
[2019-05-01 20:49] VITALS: BMI 29.4
[2019-05-01] MEDS: Acetaminophen/Codeine 30-300mg Tablet PO PRN (22:28)
[2019-05-01] MEDS ORDERED: Acetaminophen 325 MG TAB PO PRN (23:42)
[2019-05-02] MEDS: Piperacillin/Tazobactam 3.375 GM in Sodium Chloride 0.9% 100 ML IVPB SCH ×4 (00:27→17:22)
[2019-05-02] MEDS: traMADol HCl 50 MG TAB PO PRN ×2 (01:11→21:48)
[2019-05-02] MEDS: Vancomycin HCl 1.25 GM in Sodium Chloride 0.9% 250 ML 250 ML IVPB SCH (01:11)
[2019-05-02] MEDS: Sodium Chloride 0.9% 1,000 ML IV SCH ×2 (03:42→17:23)
[2019-05-02] MEDS ORDERED: Morphine 2 MG/ML SYRINGE SLOW IVP SCH (03:45)
--- NOTE | 2019-05-02 04:34 | HP ---
CHIEF COMPLAINT: Shortness of breath, tachypnea. PRIMARY CARE PHYSICIAN: Dr. Krishna. However, according to Dr. Krishna, the patient had fired Dr. Krishna. HISTORY OF PRESENT ILLNESS: The patient is an 88-year-old male with a past medical history of dementia, also has a history of hypertension and dyslipidemia, who presents to the hospital with possible fever. Again, the patient is unable to provide me history and no family by the bedside. Per ER notes, he was sent from [facility] for pain to his right lower knee and also fevers. The patient was noted to be alert and oriented x3, however, does not know the year or the month. The patient upon my interview states that he has been having some shortness of breath and also some fevers. Denies any chest pain, nausea, vomiting, or diarrhea. PAST MEDICAL HISTORY: Per records, the patient has a past medical history of gout, atrial fibrillation, CKD stage 2, degenerative joint disease, and also chronic anemia. PAST SURGICAL HISTORY: He has had right-sided inguinal hernia repair and cataract surgery. PSYCHIATRIC HISTORY: Known for the patient having aggressive dementia. SOCIAL HISTORY: The patient lives in the assisted. He was a former drug abuser and former drinker. He also used marijuana in the past. The patient denies any use of any current tobacco, smoking or chewing it. Unclear of the patient's code status. ALLERGIES: HE HAS NO KNOWN DRUG ALLERGIES. MEDICATIONS: Per the records: 1. Amlodipine 5 mg daily. 2. Aspirin 81 mg daily. 3. Atorvastatin 40 mg daily. 4. Carvedilol 12.5 daily. 5. Vitamin D 2000 units daily. 6. Namenda 10 mg daily. REVIEW OF SYSTEMS: Unable to obtain. PHYSICAL EXAMINATION: VITAL SIGNS: Temperature of 98.8, 99% on 2 L, 121/51, and heart rate of 64. GENERAL: He is awake, alert, and oriented x2. Does not appear in distress. HEENT: Normocephalic, atraumatic. No lymphadenopathy noted. Pupils are equal and reactive to light. CV: S1 and S2 present. No murmurs, rubs, or gallops. LUNGS: He got rhonchi all over. Diminished breath sounds to right upper lung area. ABDOMEN: Soft. Bowel sounds are present x2. Significant pain upon palpation to his right upper quadrant. EXTREMITIES: He does have +2 lower extremity edema. MUSCULOSKELETAL: He does have pain upon palpation to his right knee and had limited range of motion to his right leg. Neuro fortune, no focal deficits noted. LABORATORY RESULTS: The patient did have a pelvic and hip x-ray. Pelvic x-ray did not indicate any evidence of fractures and hip x-ray, no displaced fracture of the hip was noted. The patient did have an x-ray which indicated a significant right lung pneumonia. WBCs of 33,000, hemoglobin of 10.1, hematocrit of 32.4, platelets of 300. He does have a band of 29. Chemistry; sodium of 134, potassium of 5.4, BUN of 50, creatinine of 1.90. His LFTs were elevated including his total bilirubin. His urine did not indicate any acute abnormalities. ASSESSMENT AND PLAN: The patient is an 88-year-old male, who presented to the hospital with pneumonia. 1. Pneumonia, aspiration with a combination of healthcare-acquired pneumonia. The patient is a assisted resident. We will start the patient on Zosyn and vancomycin. We will possibly require CT chest. He has a significant leukocytosis, could be a possible concern for empyema for this gentleman. I will check a sputum for C and S, also will get Speech to evaluate for possible aspiration. He is going to be seen by Pulmonary since he is in the IMCU. Currently, he is not hypoxic. We will continue to monitor. 2. Sepsis, most likely secondary to his pneumonia. We will continue his current antibiotics. 3. Leukocytosis. Again, this is most likely secondary to his underlying pneumonia, may require CT for concerns of possible empyema. 4. Acute kidney injury. We will start the patient on some gentle hydration. Continue to monitor. 5. Significant elevated LFTs. I will get a right upper quadrant ultrasound just to rule out any gallbladder pathology. This also could be just cholestasis. We will continue to monitor. 6. History of dementia. I will get Palliative Care to address goals of care. I am not sure this patient is a full code versus do not resuscitate. No family around and I do not think this patient has any documentation. However, we will get Palliative Care to assess that. 7. Deep venous thrombosis prophylaxis. We will put the patient on subcu heparin. Job ID: [id number]
[2019-05-02 05:11] LABS: ALT (SGPT) 95 U/L (8-55); AST (SGOT) 98 U/L (5-34); Albumin 2.5 g/dL (3.4-4.8); Alkaline Phosphatase 164 U/L (40-150); Anion Gap 12 mmol/L (10-20); BUN (Urea Nitrogen) 48 mg/dL (8.4-25.7); Bilirubin, Total 2.7 mg/dL (0.2-1.2); Calc. Creatinine Clearance 39 mL/min (70-130); Calcium 9.1 mg/dL (7.8-10.44); Carbon Dioxide 22 mmol/L (23-31); Chloride 104 mmol/L (98-107); Estimated GFR-MDRD 53; Globulin 3.2 g/dL (2.4-3.5); Glucose 60 mg/dL (83-110); Potassium 4.9 mmol/L (3.5-5.1); Protein, Total 5.7 g/dL (5.8-8.1); Sodium 133 mmol/L (136-145)
[2019-05-02 05:14] LABS: Band 12 % (5-11); Eosinophils 1 % (0-10); Hemoglobin 8.9 g/dL (14.0-18.0); Lymphocytes 3 % (21-51); MDiff Complete? YES; Mean Corpuscular HGB CONC 30.4 g/dL (32.0-36.0); Mean Corpuscular Hemoglobin 28.6 pg (27.0-31.0); Monocytes 2 % (0-10); Neutrophil 82 % (42-75); Platelet Count 257 thou/uL (130-400); Platelet Morphology Comment Appears Adequate; RBC Distribution Width 15.2 % (11.5-14.5); RBC Morphology Normal; White Blood Cell (WBC) Count 27.8 thou/uL (4.8-10.8)
[2019-05-02] MEDS: Ferrous Sulfate 325 MG TAB PO SCH ×2 (08:53→17:22)
[2019-05-02] MEDS: Heparin 5,000 UNITS/ML VIAL SC SCH ×3 (08:53→20:51)
[2019-05-02] MEDS: Acetaminophen/Codeine 30-300mg Tablet PO PRN ×2 (08:59→19:32)
[2019-05-02] MEDS ORDERED: Vancomycin HCl 1.5 GM in Premix Bag 1 BAG IVPB SCH (09:00)
--- NOTE | 2019-05-02 09:33 | ULT ---
Gallbladder ultrasound: Multiple grayscale images of right upper quadrant obtained according to protocol. INDICATIONS: Right upper quadrant pain. Elevated liver function tests FINDINGS: No evidence of gallstones. Evidence of mild echogenic sludge. Gallbladder wall is normal thickness. Common bile duct is normal caliber. Liver is unremarkable. Pancreas is mostly obscured but appears unremarkable as visualized. Right kidney shows cortical thinning. No hydronephrosis or renal mass. IMPRESSION: Evidence of echogenic sludge within the gallbladder. No evidence of gallstones.
--- NOTE | 2019-05-02 11:48 | CON ---
DATE OF CONSULTATION: 05/02/2019 TIME SPENT: This is 70 minutes time, of that time, greater than 50% was spent with the patient and/or on the patient's unit in the hospital. REASON FOR CONSULTATION: Pneumonia. HISTORY OF PRESENT ILLNESS: The patient is an 88-year-old black male, who came into the hospital yesterday with shortness of breath. He was diagnosed with right upper lobe pneumonia and started on antibiotics. He says he feels better today, but he is coughing up some purulent sputum. Symptoms started several days ago, although his dementia is keeping him from giving me too much in the way of history. PAST MEDICAL HISTORY: 1. Chronic atrial fibrillation. 2. Gout. 3. Chronic kidney disease stage 2. 4. Anemia. 5. Degenerative joint disease. PAST SURGICAL HISTORY: 1. Right-sided inguinal hernia repair. 2. Cataract surgery. PSYCHIATRIC HISTORY: Remarkable for dementia. SOCIAL HISTORY: Lives in a [facility]. Formally abused drugs, alcohol, and marijuana. Currently is not using any substances. ALLERGIES: NONE. MEDICATIONS: Prior to admission; 1. Amlodipine. 2. Aspirin. 3. Atorvastatin. 4. Carvedilol. 5. Vitamin D. 6. Namenda. REVIEW OF SYSTEMS: A 12-point review of systems is otherwise negative. PHYSICAL EXAMINATION: VITAL SIGNS: Temperature 98.9, pulse 78, blood pressure 140/62, and O2 saturation 96% on 2 L. GENERAL: He is awake, alert, and in no distress. HEENT: Unremarkable. NECK: Without adenopathy or JVD. LUNGS: Coarse rhonchi over the right side compared to the left. CARDIAC: S1 and S2. Regular without murmur. ABDOMEN: Soft, nontender, and nondistended. EXTREMITIES: No clubbing, cyanosis, or edema. LABORATORY DATA: Sodium 132, potassium 4.9, chloride 104, CO2 of 23, BUN 48, creatinine 1.5, and glucose 60. White blood cell count 27.8, hematocrit 29.1, and platelet count 257. IMAGING STUDIES: His x-ray shows a very dense right upper lobe infiltrate. ASSESSMENT: 1. Right upper lobe pneumonia in a [facility] patient. 2. Dementia. PLAN: Agree with current IV antibiotic coverage with Zosyn and vancomycin. If the patient is stable, the could be transferred to the medical floor for continued therapy. Job ID: [id number]
[2019-05-02] MEDS ORDERED: [UNRECOGNIZED DRUG - OTHER] PO PRN (14:20)
[2019-05-02] MEDS ORDERED: ACETAMINOPHEN PO PRN (14:20)
[2019-05-02] MEDS ORDERED: traMADol HCl 50 MG TAB PO PRN (14:20)
[2019-05-02] MEDS ORDERED: GUAIFEN PO PRN (14:20)
[2019-05-02] MEDS ORDERED: DEXTROMETHORPHAN PO PRN (14:20)
--- NOTE | 2019-05-02 14:49 | PRG ---
DATE OF SERVICE: 05/02/2019 SUBJECTIVE: The patient is seen and examined at the bedside. He seems to be doing somewhat better. OBJECTIVE: VITAL SIGNS: Blood pressure is 138/64, pulse is 76, respirations 14, and O2 saturation is 97% on 2 L by nasal cannula. HEENT: His head is atraumatic and normocephalic. Eyes are PERRLA. Sclerae are nonicteric. Oral mucosa is moist. NECK: Supple. RESPIRATORY/LUNG: His breathing is a kind of a loud and some fluid congestion in his upper airways is noticeable. Also, right lung with crackles and rales. HEART: S1 and S2 normal. No S3. No S4. ABDOMEN: Soft and nontender. EXTREMITIES: No clubbing, cyanosis, or edema. NEUROLOGICAL: He follows my commands. He moves his all 4 extremities. LABORATORY DATA: White count of 27.8, hemoglobin 8.9, hematocrit 29.1, and platelet count 259,000. Sodium 133, potassium 4.9, chloride 104, CO2 of 22, BUN 48, and creatinine 1.51. Total bili 2.7, AST 98, ALT 95, and alkaline phosphatase 664,000. Total protein 5.7. Albumin 2.5. Microbiology: Urine, no growth. Blood cultures x2, no growth. Sputum Gram stain showed 5 to 10 epithelial cells, moderate wbc's, moderate gram-negative rods, moderate gram-positive cocci, and few gram-positive rods. IMPRESSION: 1. Right upper lobe pneumonia. 2. Rule out aspiration, on vanc and Zosyn to continue. 3. Acute kidney injury. 4. Elevation of LFTs with an echogenic sludge within the gallbladder. No evidence of gallstones. 5. Atrial fibrillation, not on any anticoagulation, only aspirin 81 mg. 6. History of gout. 7. Chronic kidney disease, stage 2. 8. Chronic anemia. 9. Dementia. The patient is on Namenda and Aricept at the group home. We are going to hold those two medications during hospitalization. Restart his carvedilol, magnesium, allopurinol, and citalopram. Job ID: [id number]
[2019-05-02] MEDS ORDERED: Milk Of Magnesia 30 ML UDCUP PO PRN (15:04)
[2019-05-02] MEDS ORDERED: Loratadine 10 MG TAB PO PRN (15:15)
[2019-05-02] MEDS: Allopurinol 300 MG TAB PO SCH (20:54)
[2019-05-02] MEDS: Latanoprost 0.005% Ophth Soln 2.5 ml Bottle EA EYE SCH (20:54)
[2019-05-02] MEDS: Carvedilol 6.25 MG TAB PO SCH (20:54)
[2019-05-03] MEDS: Piperacillin/Tazobactam 3.375 GM in Sodium Chloride 0.9% 100 ML IVPB SCH ×4 (00:18→18:05)
[2019-05-03 00:34] LABS: Vancomycin, Trough 8.6 ug/mL
[2019-05-03] MEDS: Vancomycin HCl 1.25 GM in Sodium Chloride 0.9% 250 ML 250 ML IVPB SCH (01:55)
[2019-05-03] MEDS: Sodium Chloride 0.9% 1,000 ML IV SCH (05:40)
[2019-05-03] MEDS: Allopurinol 300 MG TAB PO SCH ×2 (08:26→21:01)
[2019-05-03] MEDS: Ferrous Sulfate 325 MG TAB PO SCH ×2 (08:26→18:05)
[2019-05-03] MEDS: Citalopram 20 MG TAB PO SCH (08:26)
[2019-05-03] MEDS: Magnesium Oxide 400 MG TAB PO SCH (08:27)
[2019-05-03] MEDS: Fish Oil 1,000 MG CAP PO SCH (08:27)
[2019-05-03] MEDS: Potassium Chloride 20 MEQ TAB PO SCH (08:27)
[2019-05-03] MEDS: Carvedilol 6.25 MG TAB PO SCH ×2 (08:28→21:01)
[2019-05-03] MEDS: Multivit, Therapeutic 1 TAB PO SCH (08:28)
[2019-05-03] MEDS: Heparin 5,000 UNITS/ML VIAL SC SCH ×3 (08:38→21:05)
[2019-05-03] MEDS ORDERED: Polyethylene Glycol 3350 17 GM Packet PO PRN (09:00)
--- NOTE | 2019-05-03 11:32 | PRG ---
DATE OF SERVICE: 05/03/2019 SUBJECTIVE: The patient has no complaints. The nursing staff is concerned about his coarse rhonchi. OBJECTIVE: VITAL SIGNS: His O2 sats running about 96% on 1 L, pulse 72, blood pressure 124/68. Last recorded temperature was 98.4. HEENT: Unremarkable. NECK: He has upper airway sounds radiating to both lung zapata. CHEST: Crackles right upper lobe. Coarse breath sounds bilaterally otherwise. CARDIAC: S1 and S2, regular. ABDOMEN: Soft, nontender. EXTREMITIES: No edema. LABORATORY DATA: No new labs were obtained today. ASSESSMENT: Pneumonia with perhaps some component of aspiration. PLAN: 1. Go ahead and stop the IV fluids. 2. Continue IV antibiotics. 3. Watch swallowing very closely. Job ID: [id number]
[2019-05-03 12:23] LABS: #Eosinphils 0.6 thou/uL (0.0-0.7); #Lymphocytes 0.9 thou/uL (1.20-3.40); #Monocytes 1.3 thou/uL (0.11-0.59); #Neutrophils 20.2 thou/uL (1.40-6.50); %Basophils 0.2 % (0.0-1.0); %Eosinophils 2.7 % (0.0-10.0); %Lymphocytes 3.9 % (21.0-51.0); %Monocytes 5.5 % (0.0-10.0); %Neutrophils 87.8 % (42.0-75.0); Hemoglobin 8.7 g/dL (14.0-18.0); Mean Corpuscular Hemoglobin 29.1 pg (27.0-31.0); Mean Corpuscular Volume 93.8 fL (78.0-98.0); Mean Platelet Volume 9.6 fL (7.4-10.4); Platelet Count 267 thou/uL (130-400); RBC Distribution Width 15.4 % (11.5-14.5); Red Blood Cell (RBC) Count 2.98 mill/uL (4.70-6.10)
[2019-05-03 12:34] LABS: ALT (SGPT) 56 U/L (8-55); AST (SGOT) 36 U/L (5-34); Albumin 2.4 g/dL (3.4-4.8); Alkaline Phosphatase 153 U/L (40-150); Anion Gap 11 mmol/L (10-20); BUN (Urea Nitrogen) 42 mg/dL (8.4-25.7); Bilirubin, Total 2.7 mg/dL (0.2-1.2); Calc. Creatinine Clearance 43 mL/min (70-130); Calcium 9.2 mg/dL (7.8-10.44); Carbon Dioxide 23 mmol/L (23-31); Chloride 105 mmol/L (98-107); Estimated GFR-MDRD 60; Globulin 3.1 g/dL (2.4-3.5); Glucose 80 mg/dL (83-110); Potassium 4.2 mmol/L (3.5-5.1); Protein, Total 5.5 g/dL (5.8-8.1); Sodium 135 mmol/L (136-145)
--- NOTE | 2019-05-03 15:54 | PRG ---
DATE OF SERVICE: 05/03/2019 SUBJECTIVE: The patient is seen and examined at the bedside. He is moved to medical floor. He improved. His respirations are better. His breathing improved. OBJECTIVE: VITAL SIGNS: Blood pressure is 124/68, pulse is 72, respirations are 16, O2 saturation is 96% on 2 L by nasal cannula. HEENT: His pupils are responding to light properly. Sclerae are nonicteric. Oral mucosa is moist. NECK: Supple. LUNGS: Bilateral rales more on the right than on the left present, improved since yesterday. Few wheezes present on the right side. HEART: S1 and S2, somewhat irregular. No S3. No S4. ABDOMEN: Soft, nontender, nondistended. EXTREMITIES: 1+ peripheral edema, similar bilaterally. NEUROLOGICAL: He follows my commands. He moves his all 4 extremities. There is no any motor or sensory deficit. LABORATORY DATA: His labs showed white count of 23,000, hemoglobin 8.7, hematocrit 27.9, platelet count 267,000, 87.8% neutrophils, no bands. Sodium of 135, potassium 4.2, chloride 105, CO2 of 23, BUN 42, creatinine 1.36, glucose 80, total bilirubin 2.7, AST 36, ALT 58, alkaline phosphatase 153, serum protein 5.5. His procalcitonin is 11.29. Microbiology, blood cultures negative x2. Urine cultures negative. Respiratory culture, sputum Gram stain as reported before, now moderate normal respiratory lesia present. IMPRESSION: 1. Right upper lobe pneumonia, on vancomycin and Zosyn. We will continue both antibiotics. 2. Acute kidney injury, improving gradually. 3. Elevated liver function tests with echogenic sludge within the gallbladder on ultrasound. No evidence of gallstones. This is most likely reaction to a sepsis. 4. Atrial fibrillation, anticoagulation, only aspirin 81 mg. We will consider to use some anticoagulant. 5. History of gout. 6. Chronic kidney disease stage 2. 7. Chronic anemia. 8. Dementia. At this point, we are going to continue his current regimen with both antibiotics with DuoNeb's. We will get PT, OT, and fluids were stopped. Job ID: [id number]
[2019-05-03] MEDS: Latanoprost 0.005% Ophth Soln 2.5 ml Bottle EA EYE SCH (21:06)
[2019-05-04] MEDS: Piperacillin/Tazobactam 3.375 GM in Sodium Chloride 0.9% 100 ML IVPB SCH ×3 (00:12→17:56)
[2019-05-04] MEDS: Vancomycin HCl 1.25 GM in Sodium Chloride 0.9% 250 ML 250 ML IVPB SCH (00:12)
[2019-05-04 06:32] LABS: ALT (SGPT) 54 U/L (8-55); AST (SGOT) 47 U/L (5-34); Albumin 2.3 g/dL (3.4-4.8); Alkaline Phosphatase 200 U/L (40-150); Anion Gap 12 mmol/L (10-20); BUN (Urea Nitrogen) 40 mg/dL (8.4-25.7); Bilirubin, Total 2.6 mg/dL (0.2-1.2); Calc. Creatinine Clearance 45 mL/min (70-130); Calcium 9.3 mg/dL (7.8-10.44); Carbon Dioxide 21 mmol/L (23-31); Chloride 110 mmol/L (98-107); Estimated GFR-MDRD 63; Globulin 3.2 g/dL (2.4-3.5); Glucose 84 mg/dL (83-110); Potassium 4.1 mmol/L (3.5-5.1); Protein, Total 5.5 g/dL (5.8-8.1); Sodium 139 mmol/L (136-145)
[2019-05-04 06:37] LABS: Band 4 % (5-11); Hemoglobin 8.6 g/dL (14.0-18.0); Lymphocytes 6 % (21-51); MDiff Complete? YES; Mean Corpuscular HGB CONC 30.9 g/dL (32.0-36.0); Mean Corpuscular Hemoglobin 28.9 pg (27.0-31.0); Mean Corpuscular Volume 93.4 fL (78.0-98.0); Mean Platelet Volume 9.4 fL (7.4-10.4); Monocytes 3 % (0-10); Neutrophil 87 % (42-75); Platelet Count 218 thou/uL (130-400); Platelet Morphology Comment Appears Adequate; RBC Distribution Width 15.1 % (11.5-14.5); Red Blood Cell (RBC) Count 2.99 mill/uL (4.70-6.10); White Blood Cell (WBC) Count 19.8 thou/uL (4.8-10.8)
[2019-05-04] MEDS: Ferrous Sulfate 325 MG TAB PO SCH ×3 (08:11→17:56)
[2019-05-04] MEDS: Carvedilol 6.25 MG TAB PO SCH ×2 (08:12→21:38)
--- NOTE | 2019-05-04 09:53 | PRG ---
DATE OF SERVICE: 05/04/2019 SUBJECTIVE: The patient is doing reasonably well, had no acute complaints. OBJECTIVE: VITAL SIGNS: On exam, temperature is 98.4, pulse 73, blood pressure 180/74, and O2 saturation 94%. HEENT: Unremarkable. NECK: No JVD. CHEST: Crackles in the right. CARDIAC: S1 and S2, regular. ABDOMEN: Soft. EXTREMITIES: No edema. LABORATORY DATA: White blood cell count 19.8, hematocrit 27.9, and platelet count 218. Sodium 139, potassium 4.1, BUN 40, and creatinine 1.3. ASSESSMENT: Right upper lobe pneumonia - cultures show no growth to date. PLAN: 1. Go ahead and stop the vancomycin. 2. Convert Zosyn to Augmentin. 3. Hopefully, able to discharge home in the next day or two. Job ID: [id number]
[2019-05-04] MEDS: Heparin 5,000 UNITS/ML VIAL SC SCH ×3 (10:08→21:39)
[2019-05-04] MEDS: Allopurinol 300 MG TAB PO SCH ×2 (10:09→21:39)
[2019-05-04] MEDS: Fish Oil 1,000 MG CAP PO SCH (10:10)
[2019-05-04] MEDS: Citalopram 20 MG TAB PO SCH (10:14)
[2019-05-04] MEDS: Potassium Chloride 20 MEQ TAB PO SCH (10:15)
[2019-05-04] MEDS: Multivit, Therapeutic 1 TAB PO SCH (10:15)
[2019-05-04] MEDS: Magnesium Oxide 400 MG TAB PO SCH (10:15)
[2019-05-04] MEDS ORDERED: Piperacillin/Tazobactam 3.375 GM in Sodium Chloride 0.9% 100 ML IVPB SCH (12:30)
[2019-05-04] MEDS: Acetaminophen/Codeine 30-300mg Tablet PO PRN (13:52)
--- NOTE | 2019-05-04 15:01 | PRG ---
DATE OF SERVICE: 05/04/2019 SUBJECTIVE: The patient is seen and examined at bedside. He is much worse today. He moans when I try to touch him and examine him. He is mentally not able to communicate with me. OBJECTIVE: VITAL SIGNS: Blood pressure is 168/55, pulse is 69, temperature is 98, respiratory rate is 19, and O2 saturation is 96% on room air. HEENT: Pupils respond to light. Examination is limited secondary to his not willingness to cooperate with the examination. LUNGS: Rales bilaterally present. HEART: S1 and S2, somewhat distant. Somewhat irregular. No S3, no S4. ABDOMEN: Soft, nondistended. EXTREMITIES: No clubbing or cyanosis. There is 1+ peripheral edema. NEUROLOGIC: He does not communicate with me. He does not follow my commands. LABORATORY DATA: White count of 19.8, hemoglobin 8.6, hematocrit 27.9, platelet count is 218. Sodium of 139, potassium 4.1, chloride 110, CO2 of 21, BUN 40, creatinine 1.31, total bilirubin 2.6, AST 47, ALT 54, alkaline phosphatase 200, total protein 5.5, albumin 2.3. Procalcitonin 11.29. MICROBIOLOGY: Urine culture negative. Two blood cultures negative. IMPRESSION: 1. Sepsis. 2. Right upper lobe pneumonia. 3. Acute kidney injury, improving gradually. 4. Elevated liver function tests with echogenic sludge within the gallbladder on ultrasound. No gallstones. 5. Atrial fibrillation, not on any anticoagulation, only aspirin. 6. History of gout. 7. Chronic kidney disease, stage 2. 8. Chronic anemia. 9. Dementia. DISCUSSION: The patient got significantly worse this morning. He is not able to communicate with me. He became more encephalopathic. I think this is effect of his sepsis. I am going to convert him back to Zosyn. Dr. Chairez will switch him to oral Augmentin, but he is not able to take anything orally. He failed swallow studies. He aspirates when he eats. We talked to the family regarding tube feeding. Job ID: [id number]
[2019-05-04] MEDS ORDERED: Amoxicillin/Potassium Clav 875 MG TAB PO SCH (21:00)
[2019-05-04] MEDS: Latanoprost 0.005% Ophth Soln 2.5 ml Bottle EA EYE SCH (21:39)
[2019-05-05] MEDS: Piperacillin/Tazobactam 3.375 GM in Sodium Chloride 0.9% 100 ML IVPB SCH ×5 (00:36→23:50)
[2019-05-05] MEDS: Acetaminophen/Codeine 30-300mg Tablet PO PRN ×3 (00:37→17:35)
[2019-05-05 04:54] LABS: Band 2 % (5-11); Hemoglobin 8.5 g/dL (14.0-18.0); Hypochromia SLIGHT = 6-15 cells (100X) (0-5/hpf); Lymphocytes 5 % (21-51); MDiff Complete? YES; Mean Corpuscular HGB CONC 30.1 g/dL (32.0-36.0); Mean Corpuscular Volume 92.9 fL (78.0-98.0); Mean Platelet Volume 9.5 fL (7.4-10.4); Metamyelocyte 1 % (0-0); Monocytes 5 % (0-10); Neutrophil 87 % (42-75); Platelet Count 274 thou/uL (130-400); Platelet Morphology Comment Appears Decreased; RBC Distribution Width 15.6 % (11.5-14.5); Red Blood Cell (RBC) Count 3.02 mill/uL (4.70-6.10); White Blood Cell (WBC) Count 17.2 thou/uL (4.8-10.8)
[2019-05-05] MEDS: Carvedilol 6.25 MG TAB PO SCH ×2 (07:58→20:37)
[2019-05-05] MEDS: Magnesium Oxide 400 MG TAB PO SCH (08:02)
[2019-05-05] MEDS: Allopurinol 300 MG TAB PO SCH ×2 (08:02→20:37)
[2019-05-05] MEDS: Multivit, Therapeutic 1 TAB PO SCH (08:02)
[2019-05-05] MEDS: Fish Oil 1,000 MG CAP PO SCH (08:03)
[2019-05-05] MEDS: Ferrous Sulfate 325 MG TAB PO SCH ×2 (08:03→17:32)
[2019-05-05] MEDS: Citalopram 20 MG TAB PO SCH (08:03)
[2019-05-05] MEDS: Potassium Chloride 20 MEQ TAB PO SCH (08:03)
[2019-05-05] MEDS: Heparin 5,000 UNITS/ML VIAL SC SCH ×3 (08:03→20:36)
--- NOTE | 2019-05-05 10:06 | PRG ---
DATE OF SERVICE: 05/05/2019 SUBJECTIVE: He is a little disconcerted that he has been put on thickened liquids. OBJECTIVE: VITAL SIGNS: Temperature 98.3, pulse 63, blood pressure 152/69, O2 saturation 98% on room air. HEENT: Unremarkable. NECK: No JVD. CHEST: A few crackles on the right side. Left side clear. CARDIAC: S1 and S2. Regular. ABDOMEN: Soft. EXTREMITIES: No edema. LABORATORY DATA: White blood cell count 17, hematocrit 28, and platelet count 274. ASSESSMENT: Pneumonia - probably a large component related to aspiration. PLAN: Can switch over to oral antibiotics at any point. No further Pulmonary recommendations. Please re-call if further assistance needed. Job ID: [id number]
[2019-05-05] MEDS: traMADol HCl 50 MG TAB PO PRN ×2 (13:23→20:37)
--- NOTE | 2019-05-05 15:44 | PRG ---
DATE OF SERVICE: 05/05/2019 SUBJECTIVE: The patient is seen and examined at the bedside. He is significantly improved today. He is able to even say few words and converse with me. He will let me examine him. OBJECTIVE: VITAL SIGNS: Blood pressure is 148/65, pulse is 66, temperature is 97.9, respiratory rate is 20, and O2 saturation is 95% on 1 L by nasal cannula. GENERAL: He follows my commands. HEENT: His oral mucosa is moist. NECK: Supple. LUNGS: With bilateral rales present in the mid section in the lower parts. HEART: S1 and S2 normal. No S3. No S4. ABDOMEN: Soft and nontender. EXTREMITIES: No clubbing, cyanosis, or edema. NEUROLOGICAL: He follows my simple commands. He moves his all 4 extremities. LABORATORY DATA: White count of 17.2, hemoglobin 8.5, hematocrit 28.1, and platelet count is 274. IMPRESSION: 1. Sepsis. 2. Right upper lobe pneumonia. 3. Acute kidney injury, improving gradually. 4. Elevated liver function test with echogenic sludge within the gallbladder on ultrasound. No gallstones. 5. Atrial fibrillation, not on any anticoagulation or aspirin. 6. History of gout. 7. Chronic kidney disease, stage 2. 8. Chronic anemia. 9. Dementia. DISCUSSION: The patient failed his swallowing evaluation and he is high risk for aspiration. We will continue recommendation per the speech therapist. Also, we will keep him on IV antibiotics since he has a problem with swallowing and his white count is trending down nicely. We will obtain next CBC tomorrow morning. He will require additional probably at least couple of days of IV antibiotic. His procalcitonin was still very high yesterday, then he will be switched to oral Augmentin as recommended per microfilm duplicating unit supervisor and sent back to the assisted. We will try to talk to the patient's daughter, Bebeto, regarding code status and we know that the patient does not want to have any tube feeding. So, he is in high risk to aspirate and the family is aware of that and they want to continue the way he is getting his nutrition. Job ID: [id number]
[2019-05-05] MEDS: guaiFENesin ER 600 MG TAB PO SCH (20:36)
[2019-05-05] MEDS: Latanoprost 0.005% Ophth Soln 2.5 ml Bottle EA EYE SCH (20:38)
[2019-05-06] MEDS: Piperacillin/Tazobactam 3.375 GM in Sodium Chloride 0.9% 100 ML IVPB SCH ×4 (05:48→23:34)
[2019-05-06 07:13] LABS: Anion Gap 14 mmol/L (10-20); BUN (Urea Nitrogen) 33 mg/dL (8.4-25.7); Calc. Creatinine Clearance 53 mL/min (70-130); Calcium 9.8 mg/dL (7.8-10.44); Carbon Dioxide 20 mmol/L (23-31); Chloride 114 mmol/L (98-107); Estimated GFR-MDRD 76; Glucose 67 mg/dL (83-110); Potassium 3.7 mmol/L (3.5-5.1); Sodium 144 mmol/L (136-145)
[2019-05-06 07:35] LABS: #Eosinphils 0.3 thou/uL (0.0-0.7); #Lymphocytes 1.1 thou/uL (1.20-3.40); #Monocytes 0.8 thou/uL (0.11-0.59); #Neutrophils 14.1 thou/uL (1.40-6.50); %Basophils 0.3 % (0.0-1.0); %Eosinophils 1.9 % (0.0-10.0); %Monocytes 4.8 % (0.0-10.0); %Neutrophils 86.1 % (42.0-75.0); Hemoglobin 8.7 g/dL (14.0-18.0); Hypochromia SLIGHT = 6-15 cells (100X) (0-5/hpf); MDiff Complete? YES; Mean Corpuscular HGB CONC 30.8 g/dL (32.0-36.0); Mean Corpuscular Hemoglobin 28.8 pg (27.0-31.0); Mean Corpuscular Volume 93.2 fL (78.0-98.0); Mean Platelet Volume 9.8 fL (7.4-10.4); Platelet Count 314 thou/uL (130-400); Platelet Morphology Comment Appears Adequate; Polychromasia SLIGHT = 2-3 cells (100X) (0-2/hpf); RBC Distribution Width 15.6 % (11.5-14.5); Red Blood Cell (RBC) Count 3.02 mill/uL (4.70-6.10); White Blood Cell (WBC) Count 16.3 thou/uL (4.8-10.8)
[2019-05-06] MEDS: Heparin 5,000 UNITS/ML VIAL SC SCH ×3 (07:47→20:51)
[2019-05-06] MEDS: Potassium Chloride 20 MEQ TAB PO SCH (07:48)
[2019-05-06] MEDS: Allopurinol 300 MG TAB PO SCH ×2 (07:48→20:51)
[2019-05-06] MEDS: Ferrous Sulfate 325 MG TAB PO SCH ×2 (07:48→17:15)
[2019-05-06] MEDS: Citalopram 20 MG TAB PO SCH (07:48)
[2019-05-06] MEDS: Multivit, Therapeutic 1 TAB PO SCH (07:48)
[2019-05-06] MEDS: Magnesium Oxide 400 MG TAB PO SCH (07:49)
[2019-05-06] MEDS: Carvedilol 6.25 MG TAB PO SCH ×2 (07:49→20:51)
[2019-05-06] MEDS: Fish Oil 1,000 MG CAP PO SCH (07:49)
[2019-05-06] MEDS: guaiFENesin ER 600 MG TAB PO SCH ×2 (07:49→20:51)
[2019-05-06] MEDS: Acetaminophen/Codeine 30-300mg Tablet PO PRN (14:11)
--- NOTE | 2019-05-06 17:10 | PDOC.PN ---
- Subjective Encounter Start Date: 05/06/19 (f/u aspiration pneumonia) Encounter Start Time: 15:30 Subjective: No overnight events per RN. coughing with swallowing - pt eval -: by Speech Therapy today with recommendation for diet with risks - Objective Resuscitation Status - Order Detail: 05/05/19 18:35 Resuscitation Status Routine Resuscitation Status: DNAR: NO Resuscitation Discussed with: Per palliative care discussion with the patient/family Additional comments: Dr Argueta not in hospital to add DNR order. Vital Signs & Weight: Vital Signs (12 hours) Temp Pulse Resp BP BP Pulse Ox 05/06/19 10:57 63 16 100 05/06/19 08:00 97 05/06/19 07:49 160/71 H 05/06/19 07:46 98.4 F 18 162/77 H 97 05/06/19 07:31 99 05/06/19 07:29 67 16 97 Weight Weight 177 lb Most Recent Monitor Data Heart Rate from ECG 79 NIBP 126/62 NIBP BP-Mean 83 Respiration from ECG 18 SpO2 99 I&O: 05/05/19 05/06/19 05/07/19 06:59 06:59 06:59 Intake Total 3250 1123 600 Output Total 1950 Balance 1300 1123 600 Result Diagrams: 05/06/19 06:01 05/06/19 06:01 Phys Exam - Physical Examination Constitutional: NAD Respiratory: no wheezing, no rales bibasilar rales Cardiovascular: RRR, no significant murmur Gastrointestinal: soft, non-tender, no distention, positive bowel sounds Musculoskeletal: no edema decreased movement of left upper extremity Skin: no rash Dx/Plan (1) Sepsis Code(s): A41.9 - SEPSIS, UNSPECIFIED ORGANISM Status: Acute Qualifiers: Sepsis type: sepsis due to unspecified organism Qualified Code(s): A41.9 - Sepsis, unspecified organism (2) Pneumonia Code(s): J18.9 - PNEUMONIA, UNSPECIFIED ORGANISM Status: Acute Qualifiers: Aspiration pneumonia type: due to gastric secretions Laterality: right Lung location: upper lobe of lung (3) NAINA (acute kidney injury) Code(s): N17.9 - ACUTE KIDNEY FAILURE, UNSPECIFIED Status: Resolved (4) Elevated liver function tests Code(s): R94.5 - ABNORMAL RESULTS OF LIVER FUNCTION STUDIES Status: Acute (5) Atrial fibrillation Code(s): I48.91 - UNSPECIFIED ATRIAL FIBRILLATION Status: Chronic (6) Gout Code(s): M10.9 - GOUT, UNSPECIFIED Status: Chronic (7) CKD (chronic kidney disease) Code(s): N18.9 - CHRONIC KIDNEY DISEASE, UNSPECIFIED Status: Chronic Qualifiers: Chronic kidney disease stage: stage 2 (mild) Qualified Code(s): N18.2 - Chronic kidney disease, stage 2 (mild) (8) Anemia Code(s): D64.9 - ANEMIA, UNSPECIFIED Status: Chronic (9) Dementia Code(s): F03.90 - UNSPECIFIED DEMENTIA WITHOUT BEHAVIORAL DISTURBANCE Status: Chronic - Plan * Aspiration pneumonia * WBC improved - per note from Dr. Argueta - continue IV antibiotics for a few more days and trend WBC. * Anticipate change back to augmentin when ready for discharge * appreciate Speech therapy recommendations - diet with aspiration precautions * Family working with palliative care - plan for hospice when ready for home. Case management assisting with this * code status - DNAR * NAINA resolved * * dvt prophy - heparin - change to BID * gi prophy- not indicated * * family not present at time of evaluation, update as they are available.
[2019-05-06] MEDS: Latanoprost 0.005% Ophth Soln 2.5 ml Bottle EA EYE SCH (20:52)
[2019-05-07 05:05] LABS: Anion Gap 12 mmol/L (10-20); BUN (Urea Nitrogen) 27 mg/dL (8.4-25.7); Calc. Creatinine Clearance 54 mL/min (70-130); Calcium 9.6 mg/dL (7.8-10.44); Carbon Dioxide 22 mmol/L (23-31); Chloride 111 mmol/L (98-107); Estimated GFR-MDRD 77; Glucose 85 mg/dL (83-110); Potassium 3.4 mmol/L (3.5-5.1); Sodium 142 mmol/L (136-145)
[2019-05-07] MEDS: Piperacillin/Tazobactam 3.375 GM in Sodium Chloride 0.9% 100 ML IVPB SCH ×3 (05:28→18:17)
[2019-05-07 05:36] LABS: Band 1 % (5-11); Hemoglobin 8.4 g/dL (14.0-18.0); Hypochromia SLIGHT = 6-15 cells (100X) (0-5/hpf); Lymphocytes 4 % (21-51); MDiff Complete? YES; Mean Corpuscular HGB CONC 31.1 g/dL (32.0-36.0); Mean Corpuscular Hemoglobin 28.8 pg (27.0-31.0); Mean Corpuscular Volume 92.6 fL (78.0-98.0); Mean Platelet Volume 9.9 fL (7.4-10.4); Monocytes 2 % (0-10); Neutrophil 93 % (42-75); Platelet Count 314 thou/uL (130-400); Platelet Morphology Comment Appears Adequate; RBC Distribution Width 15.7 % (11.5-14.5); Red Blood Cell (RBC) Count 2.92 mill/uL (4.70-6.10); White Blood Cell (WBC) Count 18.2 thou/uL (4.8-10.8)
[2019-05-07] MEDS: Carvedilol 6.25 MG TAB PO SCH ×2 (08:27→22:14)
[2019-05-07] MEDS: Magnesium Oxide 400 MG TAB PO SCH (08:29)
[2019-05-07] MEDS: Citalopram 20 MG TAB PO SCH (08:29)
[2019-05-07] MEDS: Potassium Chloride 20 MEQ TAB PO SCH (08:29)
[2019-05-07] MEDS: Allopurinol 300 MG TAB PO SCH ×2 (08:29→22:14)
[2019-05-07] MEDS: guaiFENesin ER 600 MG TAB PO SCH ×2 (08:29→22:14)
[2019-05-07] MEDS: Heparin 5,000 UNITS/ML VIAL SC SCH ×2 (08:30→22:16)
[2019-05-07] MEDS: Ferrous Sulfate 325 MG TAB PO SCH ×2 (08:30→18:17)
[2019-05-07] MEDS: Fish Oil 1,000 MG CAP PO SCH (08:30)
[2019-05-07] MEDS: Multivit, Therapeutic 1 TAB PO SCH (08:32)
--- NOTE | 2019-05-07 11:57 | PDOC.PN ---
- Subjective Encounter Start Date: 05/07/19 Encounter Start Time: 09:00 -: old records requested/rev Patient seen and examined. No new complaints. No overnight events - Objective Resuscitation Status - Order Detail: 05/05/19 18:35 Resuscitation Status Routine Resuscitation Status: DNAR: NO Resuscitation Discussed with: Per palliative care discussion with the patient/family Additional comments: Dr Argueta not in hospital to add DNR order. MAR Reviewed: Yes Vital Signs & Weight: Vital Signs (12 hours) Temp Pulse Resp BP BP Pulse Ox 05/07/19 10:51 76 18 97 05/07/19 08:27 165/99 H 05/07/19 03:46 98.2 F 72 18 166/72 H 96 Weight Weight 177 lb Most Recent Monitor Data Heart Rate from ECG 79 NIBP 126/62 NIBP BP-Mean 83 Respiration from ECG 18 SpO2 99 I&O: 05/06/19 05/07/19 05/08/19 06:59 06:59 06:59 Intake Total 1123 1240 Balance 1123 1240 Result Diagrams: 05/07/19 04:21 05/07/19 04:21 Radiology Reviewed by me: Yes Phys Exam - Physical Examination Constitutional: NAD HEENT: PERRLA, moist MMs, sclera anicteric Neck: no JVD, supple coarse sound Cardiovascular: RRR, no significant murmur, no rub Gastrointestinal: soft, non-tender, no distention, positive bowel sounds Musculoskeletal: no edema, pulses present Neurological: non-focal, normal sensation Lymphatic: no nodes Psychiatric: normal affect Skin: no rash, normal turgor Dx/Plan (1) Pneumonia Code(s): J18.9 - PNEUMONIA, UNSPECIFIED ORGANISM Status: Acute Qualifiers: Pneumonia type: aspiration pneumonia Aspiration pneumonia type: due to gastric secretions Laterality: right Lung location: upper lobe of lung Qualified Code(s): J69.0 - Pneumonitis due to inhalation of food and vomit (2) Elevated liver function tests Code(s): R94.5 - ABNORMAL RESULTS OF LIVER FUNCTION STUDIES Status: Acute Comment: due to sepsis (3) Sepsis Code(s): A41.9 - SEPSIS, UNSPECIFIED ORGANISM Status: Acute Qualifiers: Sepsis type: sepsis due to unspecified organism Qualified Code(s): A41.9 - Sepsis, unspecified organism Comment: aspirtion pneumonia (4) Anemia Code(s): D64.9 - ANEMIA, UNSPECIFIED Status: Chronic Qualifiers: Anemia type: due to chronic kidney disease Comment: normocytic, normochromic (5) Atrial fibrillation Code(s): I48.91 - UNSPECIFIED ATRIAL FIBRILLATION Status: Chronic Qualifiers: Atrial fibrillation type: chronic Qualified Code(s): I48.2 - Chronic atrial fibrillation (6) CKD (chronic kidney disease) Code(s): N18.9 - CHRONIC KIDNEY DISEASE, UNSPECIFIED Status: Chronic Qualifiers: Chronic kidney disease stage: stage 2 (mild) Qualified Code(s): N18.2 - Chronic kidney disease, stage 2 (mild) Comment: stage 3 (7) Dementia Code(s): F03.90 - UNSPECIFIED DEMENTIA WITHOUT BEHAVIORAL DISTURBANCE Status: Chronic Comment: alzheimers type (8) Gout Code(s): M10.9 - GOUT, UNSPECIFIED Status: Chronic (9) NAINA (acute kidney injury) Code(s): N17.9 - ACUTE KIDNEY FAILURE, UNSPECIFIED Status: Resolved (10) Hypokalemia Code(s): E87.6 - HYPOKALEMIA Status: Acute - Plan cont current plan of care, continue antibiotics, respiratory therapy * continue zosyn * replace potassium * medication reviewed as below * symptomatic treatment * repeat labs tomorrow * hospice on discharge * prognosis is poor. Review of Systems - Review of Systems Other: not reliable due to his level of cognitive status - Medications/Allergies Allergies/Adverse Reactions: Allergies Allergy/AdvReac Type Severity Reaction Status Date / Time No Known Drug Allergies Allergy Verified 03/05/16 15:30 Medications: Current Medications Acetaminophen (Tylenol) 650 mg PO Q4H PRN PRN Reason: Headache/Fever/Mild Pain (1-3) Acetaminophen/Codeine Phosphate (Tylenol #3) 1 tab PO Q8HR PRN PRN Reason: Severe Pain (7-10) Last Admin: 05/06/19 14:11 Dose: 1 tab Albuterol/Ipratropium (Duoneb) 3 ml NEB [id number] [facility] Last Admin: 05/07/19 10:51 Dose: 3 ml Allopurinol (Zyloprim) 300 mg PO BID [facility] Last Admin: 05/07/19 08:29 Dose: 300 mg Carvedilol (Coreg) 6.25 mg PO BID [facility] Last Admin: 05/07/19 08:27 Dose: 6.25 mg Cholecalciferol (Vitamin D3) 2,000 units PO DAILY [facility] Last Admin: 05/07/19 08:29 Dose: 2,000 units Citalopram Hydrobromide (Celexa) 20 mg PO DAILY [facility] Last Admin: 05/07/19 08:29 Dose: 20 mg Ferrous Sulfate (Feosol) 325 mg PO BID[facility] Last Admin: 05/07/19 08:30 Dose: 325 mg Fish Oil (Fish Oil) 1,000 mg PO DAILY [facility] Last Admin: 05/07/19 08:30 Dose: 1,000 mg Guaifenesin (Mucinex) 600 mg PO Q12HR [facility] Last Admin: 05/07/19 08:29 Dose: 600 mg Heparin Sodium (Porcine) (Heparin) 5,000 units SC BID [facility] Last Admin: 05/07/19 08:30 Dose: 5,000 units Piperacillin Sod/Tazobactam (Sod 3.375 gm/ Sodium Chloride) 100 mls @ 200 mls/ hr IVPB Q6HR [facility] Last Admin: 05/07/19 05:28 Dose: 100 mls Latanoprost (Xalatan 0.005% Ophth Soln) 0 drop EA EYE HS [facility] Last Admin: 05/06/19 20:52 Dose: 1 drp Loratadine (Claritin) 10 mg PO DAILYPRN PRN PRN Reason: Allergies Last Admin: 05/05/19 20:37 Dose: 10 mg Magnesium Hydroxide (Milk Of Magnesium) 30 ml PO DAILYPRN PRN PRN Reason: Constipation Magnesium Oxide (Magnesium Oxide) 400 mg PO DAILY [facility] Last Admin: 05/07/19 08:29 Dose: 400 mg Multivitamins (Theragran) 1 tab PO DAILY [facility] Last Admin: 05/07/19 08:32 Dose: 1 tab Polyethylene Glycol (Miralax) 17 gm PO DAILYPRN PRN PRN Reason: Constipation Potassium Chloride (K-Dur) 20 meq PO DAILY [facility] Last Admin: 05/07/19 08:29 Dose: 20 meq Tramadol HCl (Ultram) 50 mg PO Q6HR PRN PRN Reason: Moderate Pain (4-6) Last Admin: 05/05/19 20:37 Dose: 50 mg
[2019-05-07] MEDS ORDERED: Diabetic Tussin 200 MG/10 ML UDCUP PO PRN (11:59)
[2019-05-07] MEDS ORDERED: Artificial Tears 18 DROP/0.9 ML EA EYE PRN (11:59)
[2019-05-07] MEDS ORDERED: Ondansetron PF 4 MG/2 ML Vial IVP PRN (11:59)
[2019-05-07] MEDS ORDERED: Sodium Chloride 0.65% Nasal 44 ML BOT EA NARE PRN (11:59)
[2019-05-07] MEDS ORDERED: Senokot S 8.6-50 MG TAB PO PRN (11:59)
[2019-05-07] MEDS ORDERED: hydrALAZINE 20 MG/ML VIAL SLOW IVP PRN (11:59)
[2019-05-07] MEDS ORDERED: Ondansetron ODT 4 MG TAB PO PRN (11:59)
[2019-05-07] MEDS ORDERED: Loperamide HCl 2 MG CAP PO PRN (11:59)
[2019-05-07] MEDS ORDERED: Cepastat Lozenges 1 LOZ PO PRN (11:59)
[2019-05-07] MEDS ORDERED: Bisacodyl 10 MG SUPP PR PRN (11:59)
[2019-05-07] MEDS ORDERED: Donepezil HCl 10 MG TAB PO SCH (21:00)
[2019-05-07] MEDS: Latanoprost 0.005% Ophth Soln 2.5 ml Bottle EA EYE SCH (22:39)
[2019-05-08] MEDS: Acetaminophen/Codeine 30-300mg Tablet PO PRN ×2 (00:16→09:15)
[2019-05-08] MEDS: Piperacillin/Tazobactam 3.375 GM in Sodium Chloride 0.9% 100 ML IVPB SCH ×3 (00:18→12:50)
[2019-05-08] MEDS ORDERED: Potassium Chloride 20 MEQ TAB PO SCH (08:15)
[2019-05-08] MEDS: Ferrous Sulfate 325 MG TAB PO SCH (09:07)
[2019-05-08] MEDS: Carvedilol 6.25 MG TAB PO SCH (09:07)
[2019-05-08] MEDS: Citalopram 20 MG TAB PO SCH (09:08)
[2019-05-08] MEDS: Allopurinol 300 MG TAB PO SCH (09:08)
[2019-05-08] MEDS: Potassium Chloride 20 MEQ TAB PO SCH (09:08)
[2019-05-08] MEDS: Fish Oil 1,000 MG CAP PO SCH (09:08)
[2019-05-08] MEDS: Magnesium Oxide 400 MG TAB PO SCH (09:09)
[2019-05-08] MEDS: Multivit, Therapeutic 1 TAB PO SCH (09:09)
[2019-05-08] MEDS: Heparin 5,000 UNITS/ML VIAL SC SCH (09:10)
[2019-05-08] MEDS: guaiFENesin ER 600 MG TAB PO SCH (09:10)
--- NOTE | 2019-05-08 11:18 | DIS ---
DATE OF ADMISSION: 05/01/2019 DATE OF DISCHARGE: 05/08/2019 PRIMARY CARE PHYSICIAN: Willy Krishna MD DISCHARGE DISPOSITION: custodial with hospice. PRIMARY DISCHARGE DIAGNOSES: Acute kidney injury, aspiration pneumonia, hypokalemia, sepsis, and abnormal LFT. SECONDARY DISCHARGE DIAGNOSES: Normocytic normochromic anemia, chronic atrial fibrillation, chronic kidney disease stage 2, dementia, and gout. PRIMARY PROCEDURE/OPERATION: None. RADIOLOGICAL INVESTIGATION: Chest x-ray, hip x-ray, pelvis x-ray, and abdominal ultrasound. SIGNIFICANT LABORATORY DATA: Hemoglobin 8.7, WBC 16.3, and platelet 314. Sodium 142, potassium 3.4, and creatinine 1.10. Blood culture and urine culture negative. DISCHARGE MEDICATIONS: 1. Augmentin 875 mg twice daily for 7 days. 2. Florastor 250 mg p.o. daily for 7 days. 3. Mucinex 600 mg twice daily for 7 days. Following are scheduled medication, which he needs to continue at custodial; 1. Allopurinol 300 mg b.i.d. 2. Coreg 6.25 mg b.i.d. 3. Vitamin D3 of 2000 units p.o. daily. 4. Celexa 20 mg daily. 5. Aricept 10 mg p.o. at bedtime. 6. Ferrous sulfate 325 mg p.o. b.i.d. 7. Xalatan eye drops at bedtime. 8. Namenda 10 mg p.o. b.i.d. 9. Multivitamin one tablet p.o. daily. 10. Fish oil one capsule daily. 11. MiraLAX 17 g p.o. daily. 12. Potassium chloride 20 mEq p.o. daily. CONTRAINDICATION: None. CODE STATUS: DNR. INPATIENT ASSISTANT CUSTOMER SERVICE MANAGER: Pulmonary group was following while in hospital. TEST RESULT PENDING ON DISCHARGE: None. ALLERGIES: NO KNOWN DRUG ALLERGIES. DISCHARGE PLAN: Posthospital, the patient will follow up with primary care physician in 1 or 2 weeks. HOSPITAL COURSE: An 88-year-old male with above-mentioned medical problem, who was admitted by Dr. Edmar Delgado, please see her H and P for further details. The patient was from custodial. He was sent to emergency room for cough, shortness of breath, and fever. He was diagnosed with aspiration pneumonia. He was treated with vancomycin and Zosyn. Subsequently, we continued the Zosyn only and on discharge, we changed to Augmentin. Pulmonary and Critical Care group was following while in hospital. On admission, he was meeting sepsis criteria as well as he was having acute kidney injury, both improved with IV fluid and antibiotic therapy. This patient is high risk for recurrent admission from his chronic oropharyngeal dysphagia. He is on modified diet. He is tolerating diet very well. This patient is up to his baseline level. I have seen and examined the patient at bedside today. Paperwork for discharge done. Discharge medication reconciliation done. The patient will be discharged with hospice at custodial. Job ID: [id number]
[2019-05-08 13:50] VITALS: BP 150/81; TEMP 98.4
--- NOTE | 2019-05-09 17:10 | EKG ---
Test Reason : Blood Pressure : / mmHG Vent. Rate : 083 BPM Atrial Rate : 083 BPM P-R Int : 172 ms QRS Dur : 134 ms QT Int : 382 ms P-R-T Axes : 082 015 082 degrees QTc Int : 448 ms Sinus rhythm with occasional Premature ventricular complexes Left bundle branch block Abnormal ECG Confirmed by ESTHELA OATES, SUYAPA ([id number]), editor farm journal SHORTY CALLAWAY ([id number]) on 05/09/2019 5:09:35 PM Referred By: Confirmed By:SUYAPA PROCTOR MD
== END 2019-05-08 13:52 | DRG 871 ==
LOC: ERS 15:02 → IMCU/EMU 17:20 → T4-B 05-02 22:03
PROVIDERS: ADMIT Family Medicine; ATTEND Family Medicine
DX: A41.9 Sepsis, unspecified organism (principal); J69.0 Pneumonitis due to inhalation of food and vomit; N17.9 Acute kidney failure, unspecified; E78.5 Hyperlipidemia, unspecified; Z66 Do not resuscitate; M10.9 Gout, unspecified; N18.2 Chronic kidney disease, stage 2 (mild); I12.9 Hypertensive chronic kidney disease with stage 1 through stage 4 chronic kidney disease, or unspecified chronic kidney disease; M19.90 Unspecified osteoarthritis, unspecified site; D63.1 Anemia in chronic kidney disease; I48.2 Chronic atrial fibrillation; G30.9 Alzheimer's disease, unspecified; F02.80 Dementia in other diseases classified elsewhere, unspecified severity, without behavioral disturbance, psychotic disturbance, mood disturbance, and anxiety; E87.6 Hypokalemia; R13.12 Dysphagia, oropharyngeal phase; Z79.82 Long term (current) use of aspirin; Z79.899 Other long term (current) drug therapy
CPT/HCPCS: 36415; 36416; 51701; 71045; 72170; 76705; 80048; 80053; 80202; 81003; 81015; 83605; 84145; 85025; 87040; 87070; 87086; 87205; 93005; 94640; 96361; 96365; 96366; 96367; 96375; 96376; J1644; J1956; J2270; J2543; J3010; J3370; J3490; J7050; J7620

== ENCOUNTER 2020-08-07 17:33 | Inpatient (IN) | payer MEDICARE, OTHER ==
[2020-08-07] MEDS ORDERED: Acetaminophen 500 MG TAB ONE (18:03)
[2020-08-07 18:23] LABS: #Lymphocytes 1.3 thou/uL (1.20-3.40); #Monocytes 0.2 thou/uL (0.11-0.59); #Neutrophils 11.6 thou/uL (1.40-6.50); %Eosinophils 0.1 % (0.0-10.0); %Lymphocytes 9.6 % (21.0-51.0); %Monocytes 1.8 % (0.0-10.0); %Neutrophils 88.5 % (42.0-75.0); Hemoglobin 12.7 g/dL (14.0-18.0); Mean Corpuscular HGB CONC 32.9 g/dL (32.0-36.0); Mean Corpuscular Hemoglobin 31.1 pg (27.0-31.0); Mean Corpuscular Volume 94.7 fL (78.0-98.0); Mean Platelet Volume 10.2 fL (7.4-10.4); Platelet Count 277 thou/uL (130-400); RBC Distribution Width 13.4 % (11.5-14.5); Red Blood Cell (RBC) Count 4.09 mill/uL (4.70-6.10); White Blood Cell (WBC) Count 13.1 thou/uL (4.8-10.8)
[2020-08-07 18:29] LABS: Bacteria/HPF None Seen HPF (None Seen); Bilirubin Negative (Negative); Blood, Urine Negative (Negative); Clarity Clear (Clear); Glucose, Urine (Dipstick) Normal (Negative); Ketone, Urine 10 mg/dL (Negative); Leukocyte Negative Leu/uL (Negative); Nitrite Negative (Negative); Protein, Urine (Dipstick) 200 mg/dL (Neg-Trace); Specific Gravity, Urine 1.026 (1.002-1.036); Squamous Epithelial None Seen HPF (0-3); Urobilinogen Normal mg/dL (Less than 2); WBC/HPF 0-3 HPF (0-3)
[2020-08-07 18:39] LABS: ALT (SGPT) 26 U/L (8-55); AST (SGOT) 14 U/L (5-34); Albumin 3.9 g/dL (3.4-4.8); Alkaline Phosphatase 115 U/L (40-110); Anion Gap 16 mmol/L (10-20); BUN (Urea Nitrogen) 20 mg/dL (8.4-25.7); Bilirubin, Total 0.6 mg/dL (0.2-1.2); CK (CPK) 27 U/L (30-200); Calc. Creatinine Clearance 0 mL/min (70-130); Calcium 9.4 mg/dL (7.8-10.44); Carbon Dioxide 23 mmol/L (23-31); Chloride 104 mmol/L (98-107); Estimated GFR-MDRD 64; Globulin 3.6 g/dL (2.4-3.5); Glucose 87 mg/dL (83-110); Magnesium 2.2 mg/dL (1.6-2.6); Potassium 3.8 mmol/L (3.5-5.1); Protein, Total 7.5 g/dL (5.8-8.1); Sodium 139 mmol/L (136-145)
[2020-08-07 19:00] LABS: CKMB 1.1 ng/mL (0-6.6)
--- NOTE | 2020-08-07 19:15 | RAD ---
ONE VIEW PELVIS: Comparison: 05-01-19 History: Pain FINDINGS: Limited evaluation of the bony pelvis and sacrum due to bowel gas, fecal material and diffuse bone de mineralization. No obvious pelvic fracture. Suboptimal evaluation of the right hip. Moderate degenera tive change of the left and right hip joint space. Limited evaluation of the obturator rings. There i s extensive atherosclerosis. IMPRESSION: No obvious fractures given the limitations of this exam. POS: PPP
--- NOTE | 2020-08-07 19:18 | RAD ---
CHEST ONE VIEW: Comparison: 05-01-19 History: Emesis. Altered mental status. FINDINGS: Cardiomegaly and atherosclerosis of the aorta. No pleural effusion. Scattered interstitial and alveol ar opacities. No pneumothorax or acute osseous abnormalities. Possible focal consolidation in the lef t lung base with partial obscuration of the left hemidiaphragm. IMPRESSION: 1. Cardiomegaly. Atherosclerosis. 2. Scattered interstitial and alveolar opacities which may represent infiltrate. Continued surveillan ce is recommended. POS: PPP
--- NOTE | 2020-08-07 19:19 | RAD ---
TWO VIEWS RIGHT HIP: History: Lethargy. Comparison: None FINDINGS: Suboptimal evaluation of the femoral neck. If there is concern for fracture, consider CT. IMPRESSION: As above. POS: PPP
[2020-08-07] MEDS ORDERED: cefTRIAXone\\ROCEPHIN 2 GM VIAL ONE (19:48)
[2020-08-07] MEDS ORDERED: Azithromycin 500 MG VIAL ONE (19:48)
[2020-08-07] MEDS ORDERED: Aspirin Chewable 81 MG TAB ONE (19:50)
--- NOTE | 2020-08-07 20:23 | CT ---
RIGHT HIP CT WITHOUT CONTRAST: History: Pain FINDINGS: Moderate fecal material. Correlate for sequelae of colitis. No significant effusion in the right hip joint space. Contour of the right femoral head and femoral n shruthi are maintained. No obvious fracture. There is heterogeneous bone demineralization. Visualized right iliac wing and obturator ring are intact. Visualized sacrum does not demonstrate any fracture. IMPRESSION: 1. No obvious fracture. However, there is diffuse bone demineralization which limits evaluation. If t here is still concern for an occult fracture, MRI can be performed. 2. Significant fecal material in the visualized sigmoid colon with bowel wall thickening and fat stra nding. Stercoral colitis cannot be excluded. Results of study discussed with Dr. Chawla 10-18-202 0 at 7:24 p.m. Code CR POS: PPP
--- NOTE | 2020-08-07 20:28 | CT ---
HEAD CT WITHOUT CONTRAST: History: Emesis. Altered mental status. Comparison: 12-08-18 FINDINGS: There is loss of cortical crews white matter differentiation in the right occipital parietal region. R emainder of the cerebrum demonstrates preservation of cortical crews white matter differentiation. The re is age appropriate brain volume loss. No parenchymal hemorrhage or extraaxial hematoma. No midline shift. Basilar cisterns are patent. Stable dilatation of the ventricular system. Adequate aeration of the sinuses and mastoid air cells. IMPRESSION: Loss of crews white matter differentiation involving the right occipital parietal region, worrisome fo r an acute/subacute infarct. Further evaluation with brain MRI is recommended. Results of study discussed with Dr. Chawla 08-07-2020 at 7:22 p.m. Code CR POS: PPP
--- NOTE | 2020-08-07 20:41 | PDOC.FPRHP ---
- History of Present Illness Chief Complaint: Aspiration pneumonia History of Present Illness: Patient is an 89 yo male with PMH of dementia, cardiomyopathy, iron deficiency anemia, HLD, HTN, Afib, CKD3, gout, OA and COPD who presents to the ED for aspiration. The patient lives at [facility] and around 4pm today he had an episode of vomiting. After the episode he stopped speaking normally and was noted to have O2 saturation of 91%. While in the ED, ED physician noted left sided facial droop. Head CT showed acute/subacute stroke. The patient also reports significant right sided hip pain and the right leg was reportedly shortened and externally rotated. Multiple images were performed without confirmation of fracture. Patient is AAOx2 in the ED, but is unable to give any medical history and unwilling to talk multiple physicians and nurses. All history obtained from checkout and clinic records. ED Course: Given azithro, ceftriaxone, aspirin, and tylenol - Allergies/Adverse Reactions Allergies Allergy/AdvReac Type Severity Reaction Status Date / Time No Known Drug Allergies Allergy Verified 03/08/20 20:07 - Home Medications Medication Instructions Recorded Confirmed Type Cholecalciferol (Vitamin D3) 2,000 unit PO DAILY 03/05/16 08/07/20 History [Vitamin D3] Memantine HCl [Namenda] 10 mg PO BID 03/05/16 08/07/20 History Carvedilol 6.25 mg PO BID 12/08/18 08/07/20 History Ferrous Sulfate [Feosol] 325 mg PO BID 12/15/18 08/07/20 History Acetaminophen [Tylenol] 650 mg PO Q4HR PRN 05/01/19 08/08/20 History Allopurinol [Zyloprim] 1 tab PO BID 05/01/19 08/07/20 History Donepezil HCl 1 tab PO HS 05/01/19 08/07/20 History Guaifen/Dextromethorphan/PE 10 ml PO Q4HR PRN 05/01/19 08/07/20 History [Tussi-Pres Liquid Packet] Loratadine 10 mg PO DAILY PRN 05/01/19 08/07/20 History Magnesium Hydroxide [Milk of 30 ml PO DAILY PRN 05/01/19 08/08/20 History Magnesia] Magnesium Oxide [Magox 400] 400 mg PO DAILY 05/01/19 08/07/20 History Polyethylene Glycol 3350 17 gm PO DAILY PRN 05/01/19 08/07/20 History HYDROcodone/Acetaminophen [[place] 5 - 325 mg PO Q8HR PRN 08/07/20 08/08/20 History 5-325 Tablet] Docusate Sodium [Dulcolax Stool 100 mg PO DAILY PRN 08/08/20 08/08/20 History Softener] Ferrous Sulfate [Feosol] 325 mg PO DAILY 08/08/20 08/08/20 History HYDROcodone/Acetaminophen [[place] 1 each PO Q6HR PRN 08/08/20 08/08/20 History 5-325 Tablet] LORazepam [Lorazepam] 0.5 mg PO DAILY PRN 08/08/20 08/08/20 History Latanoprost/Pf [Latanoprost 0.005% 1 drop EA EYE HS 08/08/20 08/08/20 History Eye Drop] Multivit, Therapeutic [Theragran] 1 tab PO DAILY 08/08/20 08/08/20 History Potassium Chloride 20 meq PO DAILY 08/08/20 08/08/20 History - History PMHx: Dementia, Afib, Iron def anemia, HTN, HLD, Gout, Osteoarthritis, CKD3, COPD PSHx: hernia repair in his 30s FHx: HTN in mother and father Social: Lives at [facility] - Review of Systems ROS unobtainable: due to mental status Musculoskeletal: reports: pain - Vital signs BP: 148/84 HR: 53 RR: 18 Temp: 100.3 O2 sat 98% on RA Wt. 61 kg - Physical Exam -Constitutional: Agitated, unwilling to answer question and follow directions, AAOx2 HEENT: normocephalic and atraumatic -HEENT: poor dentition Neck: supple, FROM Heart: no murmurs/rubs/gallops -Heart: Irregularly irregular Lungs: CTAB -Lungs: poor inspiratory effort Abdomen: soft, non-tender, bowel sounds present Musculoskeletal: normal structure, normal tone -Neurological: Patient would not follow directions in order to perform neuro exam Skin: no rash/lesions Heme/Lymphatic: no unusual bruising or bleeding -Psychiatric: Agitate, AAOx2 FMR H&P: Results - Labs Result Diagrams: 08/08/20 05:56 08/08/20 05:56 Lab results: WBC 13.1 thou/uL (4.8-10.8) H 08/07/20 18:02 Hgb 12.7 g/dL (14.0-18.0) L 08/07/20 18: Hct 38.7 % (42.0-52.0) L 08/07/20 18: MCV 94.7 fL (78.0-98.0) 08/07/20 18:02 Plt Count 277 thou/uL (130-400) 08/07/20 18: Neutrophils % 88.5 % (42.0-75.0) H 08/07/20 18:02 Sodium 139 mmol/L (136-145) 08/07/20 18: Potassium 3.8 mmol/L (3.5-5.1) 08/07/20 18: Chloride 104 mmol/L (98-107) 08/07/20 18: Carbon Dioxide 23 mmol/L (23-31) 08/07/20 18: BUN 20 mg/dL (8.4-25.7) 08/07/20 18: Creatinine 1.29 mg/dL (0.7-1.3) 08/07/20 18: Glucose 87 mg/dL (83-110) 08/07/20 18: Lactic Acid 1.6 mmol/L (0.5-2.2) 08/07/20 18: Calcium 9.4 mg/dL (7.8-10.44) 08/07/20 18: Total Bilirubin 0.6 mg/dL (0.2-1.2) 08/07/20 18:02 AST 14 U/L (5-34) 08/07/20 18:02 ALT 26 U/L (8-55) 08/07/20 18:02 Alkaline Phosphatase 115 U/L (40-110) H 08/07/20 18: Creatine Kinase 27 U/L (30-200) L 08/07/20 18: CK-MB (CK-2) 1.1 ng/mL (0-6.6) 08/07/20 18: B-Natriuretic Peptide 1320.7 pg/mL (0-100) H 08/07/20 18: Serum Total Protein 7.5 g/dL (5.8-8.1) 08/07/20 18:02 Albumin 3.9 g/dL (3.4-4.8) 08/07/20 18:02 Urine Ketones 10 mg/dL (Negative) A 08/07/20 18:17 Urine Blood Negative (Negative) 08/07/20 18:17 Urine Nitrite Negative (Negative) 08/07/20 18:17 Ur Leukocyte Esterase Negative Courtney/uL (Negative) 08/07/20 18:17 Urine RBC 4-6 HPF (0-3) A 08/07/20 18:17 Urine WBC 0-3 HPF (0-3) 08/07/20 18:17 Ur Squamous Epith Cells None Seen HPF (0-3) 08/07/20 18:17 Urine Bacteria None Seen HPF (None Seen) 08/07/20 18:17 - Radiology Interpretation Other Additional comment: Femur xray: no definite fracture Lower extremity CT: no definite fracture; significant fecal material, stercoral colitis not ruled out Pelvis xray: no obvious fractures given limitations of exam Hip xray: suboptimal evaluation Chest xray: cardiomegaly, atherosclerosis, scattered interstitial and alveolar opacities Brain CT: acute/subacute infarct FMR H&P: A/P - Problem List (1) Aspiration pneumonitis Current Visit: Yes Status: Acute Code(s): J69.0 - PNEUMONITIS DUE TO INHALATION OF FOOD AND VOMIT (2) Stroke Current Visit: Yes Status: Acute Code(s): I63.9 - CEREBRAL INFARCTION, UNSPECIFIED (3) HLD (hyperlipidemia) Current Visit: No Status: Chronic Code(s): E78.5 - HYPERLIPIDEMIA, UNSPECIFIED (4) HTN (hypertension) Current Visit: No Status: Chronic Code(s): I10 - ESSENTIAL (PRIMARY) HYPERTENSION (5) Osteoarthritis Current Visit: No Status: Chronic Code(s): M19.90 - UNSPECIFIED OSTEOARTHRITIS, UNSPECIFIED SITE (6) Atrial fibrillation Current Visit: No Status: Chronic Code(s): I48.91 - UNSPECIFIED ATRIAL FIBRILLATION Qualifiers: Atrial fibrillation type: chronic (7) CKD (chronic kidney disease) Current Visit: No Status: Chronic Code(s): N18.9 - CHRONIC KIDNEY DISEASE, UNSPECIFIED Qualifiers: Chronic kidney disease stage: stage 2 (mild) Qualified Code(s): N18.2 - Chronic kidney disease, stage 2 (mild) Comment: stage 3 (8) Dementia Current Visit: No Status: Chronic Code(s): F03.90 - UNSPECIFIED DEMENTIA WITHOUT BEHAVIORAL DISTURBANCE Comment: alzheimers type (9) Gout Current Visit: No Status: Chronic Code(s): M10.9 - GOUT, UNSPECIFIED - Plan Aspiration Pneumonitis - reported history of vomiting followed by altered mental status - now back to baseline AAOx2 - Chest xray: cardiomegaly, atherosclerosis, scattered interstitial and alveolar opacities - s/p azithro and ceftriaxone in ED - will start patient on Zosyn - NPO pending speech evaluation Acute/Subacute Stroke - unknown onset of symtoms so patient was not given TPA - s/p aspirin in ED - will continue aspirin - consider MRI tomorrow - known history of Afib - will admit to stroke for further observation Right Hip Pain - fracture could not be completely ruled out on imaging - patient to agitated to follow directions on exam - will optimize pain control - consider further evaluation tomorrow Afib - currently rate controlled - not on anticoagulation outpatient likely due to age and other health conditions - LBBB on EKG, seen on old EKGs Stercoral colitis - an attempt at manual disimpaction was going to be made; however, patient was very aggressive and proceeded to curse at multiple physicians - enema has been ordered and will be attempted HLD - not currently on statin (patient was recently removed from hospice care) - fasting lipid panel in am HTN - continue home meds Hx of HFpEF - echo in 11/2018: EF50-55%, diastolic dysfunction grade 1/3 - BNP: 13 Osteoarthritis - continue home [place] 5 Dementia - continue home meds donepizil, memantine, and lorazepam Gout - home allopurinol CKD 3 - baseline - will monitor PCP: Kathy Code: DNR IVF: NS @ 70 mls/hr Diet: NPO pending speech eval PPx: Lovenox Dispo: will admit to stroke for further observation; likely LOS > 48hrs. FMR H&P: Upper Level - Plan Date/Time: 08/07/202039 ICristobal, have evaluated this patient and agree with findings/plan as outlined by corporate intern resident. Pertinent changes/additions are listed here. This is an 89 yo male with a pmh of HLD, dementia, glaucoma, atrial fibrillation, CKD 3, COPD who presents to the ER with a cc of altered mental status. He was reported to be at his baseline, AAOx2, until 1600 this afternoon, at which time he vomited and began to act abnormal. Following this episode he returned to his baseline. He is currently resides at [facility]. At the time of exam, pt was agitated and refused to answer questions. His mental status limited the exam as well. Objective: Vitals: BP 148/84, HR 53, RR 18, Temp 100.3, SpO2 98% RA, Wt. 61 kg General: Resting, NAD HEENT: AT/NC, bilateral arcus senilis, EOMI by observation, PERRLA Cardio: irregular rate, no murmurs Lungs: Anterior and sides only, coarse breath sounds, pt did not allow for much exam Abdomen: Soft, non-acute abdomen, BS+ MSK: Pt has swelling on right knee, no complaints of right hip pain with flexion of hip Extremities: Pulses present, no edema A/P Acute metabolic encephalopathy likely 2/2 aspiration pneumonia -Admit to stroke -Pt received Rocephin and Azithromycin in the ER, will continue abx -VS stable, will start maintenance fluids -PRN Tylenol for fever -PSI/PORT score of 128 with 8.2%-9.3% mortality -Curb-65 score of with 30 day mortality of 14.0% Atrial fibrillation, rate controlled with LBBB on EKG -Hx of LBBB Stercoral colitis on CT -Abdomen soft -Pt is on chronic narcotics -Plan to attempt enema and bowel regimen in preparation for disimpaction Elevated BNP -Hx of HFpEF with an echo in 11/2018 showing EF of 50-55%, diastolic dysfunction grade 1/3, and septal bounce consistent with BBB Chronic pain from OA -on [place] 5 TID, will continue, DISTRICT CLAIMS MANAGER aware is appropriate Dementia -Continue home meds -DISTRICT CLAIMS MANAGER aware shows Lorazepam 0.5mg daily -Will consult palliative in the morning CKD 3, at baseline Please see corporate intern note for further information and chronic condition management Code: DNR Prophylaxis: SCDs, pt is a fall risk Family: None at bedside Fluids: LR Diet: Regular diet pending swallow study Disposition: DC in 2-3 days PCP: KWAN Stock Addendum - Attending - Attending Attestation Date/Time: 08/08/20 0718 I personally evaluated the patient and discussed the management with the team. I agree with the History, Examination, Assessment and Plan documented above with any addition or exceptions noted below. 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 He would now answer many questions about his PMFSH or HPI. On exam he was aggressive and non ill appearing. His abdomen was soft. He cursed at me when I tried to move his right leg, which was positioned in lateral rotation. Will treat empirically for aspiration vs pneumonia. He has evidence radiographically of stercoral colitis. He has refused disimpaction. Will attempt enema, which I imagine he will refuse also. If that is the case we will have to consider r/b of bowel regimen in light of recent aspiration. Overall, he needs a goals of care discussion. Hospice was revoked and we need to discuss with family. I would be hesitant to repeat an echo or other intensive workup without this discussion. Dr. Cherry, his PCP, is coming on and can facilitate this in the AM.
--- NOTE | 2020-08-07 21:46 | RAD ---
RIGHT FEMUR TWO VIEWS: History: Altered mental status. Pain. FINDINGS: Diffuse bone demineralization. There is extensive atherosclerosis. Limited evaluation given that thes e images are performed on the trauma board. No definite fracture. IMPRESSION: No definite fracture. POS: PPP
[2020-08-07 22:07] LABS: SARS-CoV-2 NAA Rapid Test Not Detected (NotDetected)
[2020-08-07] MEDS ORDERED: Sodium Chloride 0.9% 1,000 ML IV SCH (22:45)
[2020-08-07] MEDS ORDERED: Fleet Enema 133 ML BOT PR SCH (22:45)
[2020-08-07] MEDS ORDERED: Piperacillin/Tazobactam 4.5 GM in Sodium Chloride 0.9% 100 ML IVPB SCH (23:00)
[2020-08-08] MEDS ORDERED: Polyethylene Glycol 3350 17 GM Packet PO PRN (00:02)
[2020-08-08] MEDS ORDERED: Lorazepam 0.5 MG TAB PO PRN (00:02)
[2020-08-08] MEDS ORDERED: DEXTROMETHORPHAN PO PRN (00:09)
[2020-08-08] MEDS ORDERED: GUAIFEN PO PRN (00:09)
[2020-08-08] MEDS ORDERED: [UNRECOGNIZED DRUG - OTHER] PO PRN (00:09)
[2020-08-08] MEDS ORDERED: Loratadine 10 MG TAB PO PRN (00:12)
[2020-08-08] MEDS ORDERED: Ziprasidone 20 MG VIAL IM PRN (01:00)
[2020-08-08] MEDS ORDERED: Sterile Water 10 ML VIAL FS PRN (02:00)
[2020-08-08] MEDS: Piperacillin/Tazobactam 3.375 GM in Sodium Chloride 0.9% 100 ML IVPB SCH ×2 (05:52→13:10)
[2020-08-08 06:04] LABS: #Lymphocytes 1.9 thou/uL (1.20-3.40); #Monocytes 0.6 thou/uL (0.11-0.59); #Neutrophils 7.6 thou/uL (1.40-6.50); %Basophils 0.3 % (0.0-1.0); %Eosinophils 0.4 % (0.0-10.0); %Lymphocytes 18.3 % (21.0-51.0); %Monocytes 6.2 % (0.0-10.0); %Neutrophils 74.7 % (42.0-75.0); Hemoglobin 12.6 g/dL (14.0-18.0); Mean Corpuscular HGB CONC 32.8 g/dL (32.0-36.0); Mean Corpuscular Hemoglobin 31.2 pg (27.0-31.0); Mean Corpuscular Volume 95.1 fL (78.0-98.0); Platelet Count 255 thou/uL (130-400); RBC Distribution Width 13.6 % (11.5-14.5); Red Blood Cell (RBC) Count 4.03 mill/uL (4.70-6.10); White Blood Cell (WBC) Count 10.2 thou/uL (4.8-10.8)
[2020-08-08 06:31] LABS: ALT (SGPT) 23 U/L (8-55); AST (SGOT) 17 U/L (5-34); Albumin 3.5 g/dL (3.4-4.8); Alkaline Phosphatase 100 U/L (40-110); Anion Gap 13 mmol/L (10-20); BUN (Urea Nitrogen) 27 mg/dL (8.4-25.7); Bilirubin, Total 0.7 mg/dL (0.2-1.2); Calc. Creatinine Clearance 34 mL/min (70-130); Calcium 9.3 mg/dL (7.8-10.44); Carbon Dioxide 24 mmol/L (23-31); Cardiac Risk 4.1 (Less than 4.5); Chloride 108 mmol/L (98-107); Cholesterol 168 mg/dl (< 200 Desired); Estimated GFR-MDRD 55; Globulin 3.4 g/dL (2.4-3.5); Glucose 81 mg/dL (83-110); HDL Cholesterol 41 mg/dL (>60 Neg Risk); LDL Cholesterol, Calculated 115 mg/dL; Potassium 3.7 mmol/L (3.5-5.1); Protein, Total 6.9 g/dL (5.8-8.1); Sodium 141 mmol/L (136-145); Triglycerides 59 mg/dL (Less than 150)
[2020-08-08 06:36] LABS: Troponin I 0.064 ng/mL (< 0.028)
--- NOTE | 2020-08-08 08:49 | PDOC.FM ---
- Subjective Subjective: Doing well this morning. A/Ox2 but short term memory poor. no acute pain. Cannot remember last time he had a BM. Complains of R knee pain and swelling, no hip pain. Bedbound. Legacy patient, was previous on hospice but graduated off a few months ago. Patient denies any CP, SOB, n/v, abd pain. - Objective MAR Reviewed: Yes Vital Signs & Weight: Vital Signs (12 hours) Temp Pulse Resp BP Pulse Ox 08/08/20 07:43 97.8 F 58 L 20 159/75 H 96 08/08/20 04:00 97.8 F 49 L 20 170/68 H 08/08/20 00:51 98.4 F 56 L 20 138/62 94 L 08/08/20 00:08 95 08/07/20 23:40 97.5 F L 55 L 22 H 08/07/20 21:30 94 L Weight Weight 69.354 kg I&O: 08/07/20 08/08/20 08/09/20 06:59 06:59 06:59 Intake Total 400 Output Total 0 Balance 400 Result Diagrams: 08/08/20 05:56 08/08/20 05:56 EKG Reviewed by me: Yes (BBB, sinus bird, no specific T wave changes) Phys Exam - Physical Examination Constitutional: NAD (resting comfortably) HEENT: moist MMs poor dentition Neck: no nodes, supple Respiratory: no wheezing, no rales, no rhonchi, clear to auscultation bilateral Cardiovascular: RRR, no significant murmur, no rub Gastrointestinal: soft, non-tender, no distention, positive bowel sounds Right knee effussion and TTP, no hip pain, 4/5 strength BL LE Neurological: non-focal Deviation from normal: A/O x2, poor short term memory Dx/Plan (1) Aspiration pneumonitis Code(s): J69.0 - PNEUMONITIS DUE TO INHALATION OF FOOD AND VOMIT Status: Acute (2) Stroke Code(s): I63.9 - CEREBRAL INFARCTION, UNSPECIFIED Status: Acute (3) Pneumonia Code(s): J18.9 - PNEUMONIA, UNSPECIFIED ORGANISM Status: Acute Qualifiers: Pneumonia type: aspiration pneumonia (4) Dementia Code(s): F03.90 - UNSPECIFIED DEMENTIA WITHOUT BEHAVIORAL DISTURBANCE Status: Chronic - Plan Plan: 89yo AAM, legacy assisted resident previously on hospice who presented for aspiration event from assisted #Aspiration Pneumonitis - Reported history of vomiting at assisted followed by AMS, now back to baseline - CXR scattered interstitial and alveolar opacities - s/p azithro and rocephin in ED, now on Zosyn, will consider d/c of antibiotics as low suspicion for aspiration PNA at this time - Speech consult pending #Acute/Subacute CVA - Unknown onset of sxs, thus not a candidate for TPA, no focal deficit on exam but difficult to assess due to patient mentation and cooperation - ASA in ED - Will discuss goals of care with patient MPOA as they desire aggressive care, will need MRI, Carotid Dopplers, and Echo - Previously on hospice and candidate again if family desires - Palliative consulted for assistance with goals of care #Right knee pain - no hip pain at present - Fx not completely ruled out with imaging - Again, will discuss goals of care with family prior to MRI of hip and/or ortho consultation #Elevated BNP - Ef 50-55% in Nov 2019, no clinical signs of CHF, satting well on RA and no edema - Trop 0.036 -> 0.064 -> 0.034 - likely chronic elevation due to troponin leak - Again, discuss goals of care and hospice vs aggressive management - consider Echo pending discussion # H/o Afib - currently rate controlled - not on anticoagulation outpatient likely due to age and other health conditions - Chronic LBBB on EKG - Goals of care discussoin #Stercoral colitis - an attempt at manual disimpaction was made at admission however patient uncooperative and refused. Refused enema as well. Will attempt again today. - Likely due to chronic pain medications, after disimpaction will need aggressive bowel regimen #HLD - not currently on statin (patient was recently removed from hospice care) - fasting lipid panel with elevated LDL - Again, goals of care, if aggressive management and not hospice will need statin therapy #HTN - continue home meds #Osteoarthritis - continue home [place] 5 #Dementia - continue home meds donepizil, memantine, and lorazepam #Gout - home allopurinol - Possibly flare in R knee, consider arthrocentesis #CKD 3 - baseline, stable PCP: Kathy Andrews [place] Code: DNR IVF: SL Diet: NPO pending speech eval PPx: Lovenox Dispo: Admitted to stroke. Workup and mangement pending goals of care discussion with family. Attempted to reach out this morning and no answer from numbers in chart, awaiting call back from [place] for more family contact information. Addendum - Attending - Attending Attestation Date/Time: 08/08/20 1000 I personally evaluated the patient and discussed the management with Dr. Dawson. I agree with the History, Examination, Assessment and Plan documented above with any addition or exceptions noted below. Pt presents for aspiration at the assisted yesterday. He was started on broad spectrum abx. Subsequently he was found to have an acute/subacute infarct on CT head. Will need to discuss with family if they want neurology, carotid, echocardiogram, and MRI of head as he was recently d/c from hospice. He has hip pain and CT hip, xray were not inconclusive for fracture. Will not perform MRI as he is bed bound. He did have an elevated BNP, indet trop. EKG pending. No signs of HF on exam. Palliative consulted. Will discuss with family goals of care and recommend re-initiation of hospice care. Of note, pt has stercoral colitis and will require manual disimpaction.
[2020-08-08] MEDS ORDERED: Magnesium Oxide 400 MG TAB PO SCH (09:00)
[2020-08-08 09:38] VITALS: BMI 22.1
[2020-08-08 09:41] LABS: Troponin I 0.034 ng/mL (< 0.028)
[2020-08-08] MEDS: Carvedilol 6.25 MG TAB PO SCH ×2 (11:04→20:52)
[2020-08-08] MEDS: Ferrous Sulfate 325 MG TAB PO SCH ×2 (11:04→20:52)
[2020-08-08] MEDS: Allopurinol 300 MG TAB PO SCH ×2 (11:04→20:51)
[2020-08-08] MEDS: Cholecalciferol 1,000 UNITS (25 MCG) TAB PO SCH (11:04)
[2020-08-08] MEDS: Enoxaparin Sodium 40 MG/0.4 ML SYRINGE SC SCH (11:04)
[2020-08-08] MEDS ORDERED: Senokot S 8.6-50 MG TAB PO SCH (11:45)
--- NOTE | 2020-08-08 12:39 | PDOC.BPN ---
- Brief Progress Note Encounter Date: 08/08/20 Encounter Time: 12:30 Verbal consent obtained for disimpaction from patient after risks/benefits/alternatives discussed. Attempted manual disimpaction for suspected stercoral colitis. Able to initially remove some hard stool in rectal vault however at repeat attempt patient tightened anal, began yelling, kicking, cursing and hitting nursing staff. Refused repeat exam. Soap suds enema given with some liquid stool removed. Will continue oral bowel regime and repeat soap suds enema as tolerated. Also have tried 3 numbers in chart to contact family with no answer and no answer from NH to talk to [facility] to discuss goals of care and whether to pursue continued workup. CM and Palliative Care consulted to assist. Will continue to await family for GOC.
--- NOTE | 2020-08-08 13:13 | RAD ---
Exam: XR Knee Rt 4 View STANDARD HISTORY: Right knee pain and effusion. COMPARISON: 04/11/2019 FINDINGS: There is osteopenia. Minimal osteophytes are seen scattered about the right knee. There is mild narro wing of both the medial and lateral joint compartments. No fracture or dislocation is seen. No obvious joint effusion is present on this exam. Dense vascular calcifications are again seen posterior to the right knee. IMPRESSION: 1. No acute osseous abnormality. 2. Osteopenia and osteoarthritis. 3. Dense vascular calcifications
[2020-08-08] MEDS: HYDROcodone/Acetaminophen 5/325 mg Tablet PO PRN (15:11)
--- NOTE | 2020-08-08 15:57 | PDOC.BPN ---
- Brief Progress Note Encounter Date: 08/08/20 Encounter Time: 15:45 Spoke with Daughter, Bebeto, at beside. Discussed findings and diagnosis given this hospitalization. Discussed options of ortho workup for possible hip fracture, CVA workup, and CHF workup. Unlikely PNA and more likely aspiration pneumonitis, discontinued antibiotics. Daughter states she and him would like to pursue comfort care and no aggressive measures or further workup. Daughter works for [employer] and would like to pursue hospice care with them at [facility]. CM updated, hospice consult placed. Stable for medical discharge to hospice once arranged, likely tomorrow. All questions answered at bedside.
[2020-08-08] MEDS: Senokot S 8.6-50 MG TAB PO SCH (20:51)
[2020-08-08] MEDS: Donepezil HCl 10 MG TAB PO SCH (20:52)
[2020-08-08] MEDS ORDERED: FLU VACC QS2020-21(65YR UP)/PF 240 MCG/0.7 ML SYRINGE IM ONE (21:00)
[2020-08-09 05:04] LABS: #Eosinphils 0.7 thou/uL (0.0-0.7); #Lymphocytes 2.5 thou/uL (1.20-3.40); #Monocytes 1.1 thou/uL (0.11-0.59); #Neutrophils 6.6 thou/uL (1.40-6.50); %Basophils 0.3 % (0.0-1.0); %Eosinophils 6.8 % (0.0-10.0); %Lymphocytes 22.4 % (21.0-51.0); %Neutrophils 60.4 % (42.0-75.0); Mean Corpuscular HGB CONC 31.6 g/dL (32.0-36.0); Mean Corpuscular Hemoglobin 30.7 pg (27.0-31.0); Mean Corpuscular Volume 96.9 fL (78.0-98.0); Mean Platelet Volume 9.9 fL (7.4-10.4); Platelet Count 236 thou/uL (130-400); RBC Distribution Width 13.5 % (11.5-14.5); Red Blood Cell (RBC) Count 3.59 mill/uL (4.70-6.10)
[2020-08-09 05:29] LABS: ALT (SGPT) 24 U/L (8-55); AST (SGOT) 19 U/L (5-34); Alkaline Phosphatase 87 U/L (40-110); Anion Gap 13 mmol/L (10-20); BUN (Urea Nitrogen) 25 mg/dL (8.4-25.7); Bilirubin, Total 0.5 mg/dL (0.2-1.2); Calc. Creatinine Clearance 34 mL/min (70-130); Calcium 9.1 mg/dL (7.8-10.44); Carbon Dioxide 20 mmol/L (23-31); Chloride 107 mmol/L (98-107); Estimated GFR-MDRD 54; Globulin 3.4 g/dL (2.4-3.5); Glucose 81 mg/dL (83-110); Potassium 3.4 mmol/L (3.5-5.1); Protein, Total 6.4 g/dL (5.8-8.1); Sodium 137 mmol/L (136-145)
[2020-08-09] MEDS: HYDROcodone/Acetaminophen 5/325 mg Tablet PO PRN ×2 (06:52→16:47)
--- NOTE | 2020-08-09 07:18 | PDOC.FM ---
- Subjective Subjective: Doing well this morning, no acute events overnight. Calm and in good spirits this morning. Complaining of worsening chronic R hip pain, given Dinosaur with minimal relief. Described as a shooting pain down his right leg. Denies CP/SOB, n/v. Has had multiple BM since yesterday's disimpaction. - Objective MAR Reviewed: Yes Vital Signs & Weight: Vital Signs (12 hours) Temp Pulse Resp BP BP Pulse Ox 08/09/20 03:59 98.4 F 57 L 18 127/65 98 08/09/20 00:00 97.9 F 54 L 18 124/64 98 08/08/20 20:52 112/93 H 08/08/20 20:41 97.3 F L 53 L 14 112/93 H 99 Weight Admit Weight 69.354 kg Weight 70.216 kg I&O: 08/08/20 08/09/20 08/10/20 06:59 06:59 06:59 Intake Total 400 716 Output Total 0 Balance 400 716 Result Diagrams: 08/09/20 04:45 08/09/20 04:45 EKG Reviewed by me: Yes (Tele: Sinus bird, 1st degree AV block, LBBB) Phys Exam - Physical Examination Constitutional: NAD (resting comfortably, good spirits this AM) HEENT: moist MMs poor dentition Neck: supple Respiratory: no wheezing, no rales, no rhonchi, clear to auscultation bilateral Cardiovascular: no significant murmur regular rhythm, bradycardia Gastrointestinal: soft, non-tender, no distention, positive bowel sounds Musculoskeletal: no edema pain to right knee and hip Neurological: moves all 4 limbs Psychiatric: normal affect Deviation from normal: A/O x2 Dx/Plan (1) Aspiration pneumonitis Code(s): J69.0 - PNEUMONITIS DUE TO INHALATION OF FOOD AND VOMIT Status: Acute (2) Stroke Code(s): I63.9 - CEREBRAL INFARCTION, UNSPECIFIED Status: Acute (3) Pneumonia Code(s): J18.9 - PNEUMONIA, UNSPECIFIED ORGANISM Status: Acute Qualifiers: Pneumonia type: aspiration pneumonia (4) Dementia Code(s): F03.90 - UNSPECIFIED DEMENTIA WITHOUT BEHAVIORAL DISTURBANCE Status: Chronic - Plan Plan: 89yo AAM, [facility] resident previously on hospice who presented for aspiration event from long term #Aspiration Pneumonitis - Reported history of vomiting at long term followed by A[facility], now back to baseline - CXR scattered interstitial and alveolar opacities - s/p azithro and rocephin in ED, Zosyn on floor, now off abx - Speech rec mechanical soft diet - Low suspicion for pneumonia due to normal vitals, CXR, exam, and timing of events. Discontinued antibiotics and will continue to monitor #Acute/Subacute CVA - Unknown onset of sxs, thus not a candidate for TPA, no focal deficit on exam but difficult to assess due to patient mentation and cooperation - ASA in ED - Discussed findings with daughter, Bebeto, decision made to pursue hospice at [facility] again and not pursue any further workup or management #Right knee/hip pain - Fx not completely ruled out with imaging - Discussed with daughter, does not desire further imaging with MRI or management other than pain management - Added Marla to alleviate pain #Elevated BNP - Ef 50-55% in Nov 2019, no clinical signs of CHF, satting well on RA and no edema - Trop 0.036 -> 0.064 -> 0.034 - likely chronic elevation due to troponin leak - Transitioning to hospice, no further workup at this time # H/o Afib - currently sinus bird - not on anticoagulation outpatient due to age, co-morbidities, and tra nsitioning back to hospice - Chronic LBBB on EKG #Stercoral colitis - Attempted manual disimpaction, not tolerated well yesterday however has since had 6 documented BM - Continue bowel regimen and monitor #HLD - not currently on statin (patient was recently removed from hospice care) - fasting lipid panel with elevated LDL - No statin at this time due to transitioning to hospice care #HTN - continue home meds #Osteoarthritis - continue home Dinosaur 5 #Dementia - continue home meds donepizil, memantine, and lorazepam #Gout - home allopurinol #CKD 3 - baseline, stable PCP: Kathy Andrews [place] Code: DNR IVF: SL Diet: Mechanical soft PPx: Lovenox Dispo: Goals of care discussion with family and decision to pursue Hospice at [facility]. Consult placed. CM notified. Anticipate discharge to hospice as soon as arranged. Continue pain management and comfort measures.
[2020-08-09] MEDS ORDERED: Potassium Chloride 20 MEQ TAB PO SCH (07:30)
[2020-08-09] MEDS: Polyethylene Glycol 3350 17 GM Packet PO SCH (08:23)
[2020-08-09] MEDS: Senokot S 8.6-50 MG TAB PO SCH ×2 (08:24→21:47)
[2020-08-09] MEDS: Allopurinol 300 MG TAB PO SCH ×2 (08:26→21:39)
[2020-08-09] MEDS: Carvedilol 6.25 MG TAB PO SCH ×2 (08:26→21:39)
[2020-08-09] MEDS: Cholecalciferol 1,000 UNITS (25 MCG) TAB PO SCH (08:27)
[2020-08-09] MEDS: Gabapentin 300 MG CAP PO SCH ×2 (08:27→21:39)
[2020-08-09] MEDS: Enoxaparin Sodium 40 MG/0.4 ML SYRINGE SC SCH (08:27)
--- NOTE | 2020-08-09 13:10 | PDOC.FMACP ---
Advance Care Planning - Problem (1) Palliative care encounter Status: Acute Code(s): Z51.5 - ENCOUNTER FOR PALLIATIVE CARE (2) Declining functional status Status: Acute Code(s): R53.81 - OTHER MALAISE (3) Aspiration pneumonitis Status: Acute Code(s): J69.0 - PNEUMONITIS DUE TO INHALATION OF FOOD AND VOMIT (4) Stroke Status: Acute Code(s): I63.9 - CEREBRAL INFARCTION, UNSPECIFIED (5) Atrial fibrillation Status: Chronic Code(s): I48.91 - UNSPECIFIED ATRIAL FIBRILLATION Qualifiers: Atrial fibrillation type: chronic (6) CKD (chronic kidney disease) Status: Chronic Code(s): N18.9 - CHRONIC KIDNEY DISEASE, UNSPECIFIED Qualifiers: Chronic kidney disease stage: stage 2 (mild) Qualified Code(s): N18.2 - Chronic kidney disease, stage 2 (mild) (7) Dementia Status: Chronic Code(s): F03.90 - UNSPECIFIED DEMENTIA WITHOUT BEHAVIORAL DISTURBANCE - Note Participants: patient, family, palliative care Summary: Reviewed Advanced Care Planning, opportunity to decline. The diagnosis, prognosis and goals of care were discussed. Appropriate forms and documentation to accomplish the goals of care were discussed. All questions were answered. Bebeto is Mr Valentino CHRISTINE. She confirmed decision for patient to transition to [facility] with hosp[facility] care. [facility] is the desired company as he was on their services in the past. Awaiting F2F assessment by their provider. Confirmed DNAR status and OOHDNAR. Understanding of decline, expresses wishes to remain with comfort measures and quality of days through management of symptoms. Spoke with [facility] confirming that their CORRUGATOR will come 08/09/2020 and perform the required F2F to readmit to hospice services. Palliative Care will sign off as Goal of Care has been addressed. Time Spent (mins): 40
[2020-08-09] MEDS: Donepezil HCl 10 MG TAB PO SCH (21:39)
--- NOTE | 2020-08-10 07:02 | PDOC.FM ---
- Subjective Subjective: Did well overnight, no acute events. Slept well. Pain more controlled. Stable for discharge to hospice care at [facility]. Awaiting ENGRAVER LETTERING eval for acceptance. - Objective MAR Reviewed: Yes Vital Signs & Weight: Vital Signs (12 hours) Temp Pulse Resp BP BP Pulse Ox 08/10/20 04:20 98.3 F 56 L 17 97 08/10/20 00:00 111/60 08/09/20 21:39 116/62 08/09/20 20:00 97.5 F L 72 14 116/62 97 Weight Admit Weight 69.354 kg Weight 70.216 kg I&O: 08/08/20 08/09/20 08/10/20 06:59 06:59 06:59 Intake Total 400 716 600 Output Total 0 100 Balance 400 716 500 Result Diagrams: 08/09/20 04:45 08/09/20 04:45 Phys Exam - Physical Examination Constitutional: NAD (resting comfortably) HEENT: moist MMs poor dentition Neck: supple Respiratory: no wheezing, no rales, no rhonchi, clear to auscultation bilateral Cardiovascular: RRR Gastrointestinal: soft, non-tender, no distention, positive bowel sounds Musculoskeletal: no edema Deviation from normal: A/Ox2 Dx/Plan (1) Aspiration pneumonitis Code(s): J69.0 - PNEUMONITIS DUE TO INHALATION OF FOOD AND VOMIT Status: Acute (2) Stroke Code(s): I63.9 - CEREBRAL INFARCTION, UNSPECIFIED Status: Acute (3) Dementia Code(s): F03.90 - UNSPECIFIED DEMENTIA WITHOUT BEHAVIORAL DISTURBANCE Status: Chronic - Plan Plan: 89yo AAM, [facility] resident previously on hospice who presented for aspiration event from [facility] #Aspiration Pneumonitis - Reported history of vomiting at [facility] followed by [facility], now back to baseline - CXR scattered interstitial and alveolar opacities - s/p azithro and rocephin in ED, Zosyn on floor, now off abx - Speech rec mechanical soft diet - Low suspicion for pneumonia due to normal vitals, CXR, exam, and timing of events. Discontinued antibiotics and will continue to monitor - has done well off abx #Acute/Subacute CVA - Unknown onset of sxs, thus not a candidate for TPA, no focal deficit on exam but difficult to assess due to patient mentation and cooperation - ASA in ED - Discussed findings with daughter, Bebeto, decision made to pursue hospice at [facility] again and not pursue any further workup or management #Right knee/hip pain - Stress Fx not completely ruled out with imaging - Discussed with daughter, does not desire further imaging with MRI or manag ement other than pain management - Added Marla to alleviate pain with improvement #Elevated BNP - Ef 50-55% in Nov 2019, no clinical signs of CHF exacerbation, satting well on RA and no edema - Trop 0.036 -> 0.064 -> 0.034 - likely chronic elevation due to troponin leak - Transitioning to hospice, no further workup at this time # H/o Afib - currently sinus - not on anticoagulation outpatient due to age, co-morbidities, and transitioning back to hospice - Chronic LBBB on EKG #Stercoral colitis - Attempted manual disimpaction, not tolerated well 08/08 however has since had multiple BM - Continue bowel regimen and monitor #HLD - not currently on statin (patient was recently removed from hospice care) - fasting lipid panel with elevated LDL - No statin at this time due to transitioning to hospice care and current life expectancy and goals of care #HTN - continue home meds #Osteoarthritis - continue home [place] 5 prn #Dementia - continue home meds donepizil, memantine, and lorazepam #Gout - home allopurinol #CKD 3 - baseline, stable PCP: Kathy - [facility] Code: DNR IVF: SL Diet: Mechanical soft PPx: Lovenox Dispo: Goals of care discussion with family and decision to pursue Hospice at [facility]. Accepted to [facility] at [facility]. Awaiting ENGRAVER LETTERING eval this AM. Anticipate discharge today.
[2020-08-10] MEDS: Cholecalciferol 1,000 UNITS (25 MCG) TAB PO SCH (08:08)
[2020-08-10] MEDS: Carvedilol 6.25 MG TAB PO SCH (08:08)
[2020-08-10] MEDS: Allopurinol 300 MG TAB PO SCH (08:08)
[2020-08-10] MEDS: Enoxaparin Sodium 40 MG/0.4 ML SYRINGE SC SCH (08:09)
[2020-08-10] MEDS: HYDROcodone/Acetaminophen 5/325 mg Tablet PO PRN (08:09)
[2020-08-10] MEDS: Gabapentin 300 MG CAP PO SCH (08:09)
[2020-08-10] MEDS: Senokot S 8.6-50 MG TAB PO SCH (08:25)
[2020-08-10] MEDS: Polyethylene Glycol 3350 17 GM Packet PO SCH (08:25)
[2020-08-10] MEDS ORDERED: hydrALAZINE 10 MG TAB PO SCH (08:30)
[2020-08-10 12:08] VITALS: BP 158/81; TEMP 97.1
--- NOTE | 2020-08-11 14:37 | DIS ---
DATE OF ADMISSION: 08/07/2020 DATE OF DISCHARGE: 08/10/2020 RESIDENT: Dez Dawson MD ADMITTING ATTENDING: Jerry Chatman MD DISCHARGE ATTENDING: Dr. Handy Cherry. CONSULTS: None. PROCEDURES: 1. Brain CT on 08/07/2020 demonstrating loss of crews-white matter differentiation involving the right occipital parietal region worrisome for acute/subacute infarct. Further MRI recommended. 2. Chest x-ray on 08/07/2020, demonstrating scattered interstitial and alveolar opacities which may represent infiltrate, cardiomegaly, and atherosclerosis. 3. Hip x-ray on 08/07/2020 demonstrating a suboptimal view of the femoral neck. 4. Pelvis x-ray on 08/07/2020, demonstrating no obvious fractures given the limitations of the exam. 5. Right lower extremity CT performed on 08/07/2020, demonstrating no obvious fracture; however, diffuse bone mineralization was seen on evaluation. Significant fecal material within the sigmoid colon with bowel wall thickening and fat stranding. Stercoral colitis cannot be excluded. 6. Right femur x-ray on 07/28/2020 demonstrating no definitive fracture. 7. Right knee x-ray on 08/08/2020, demonstrating no acute osseous abnormality. Osteopenia and osteoarthritis. Dense vascular calcification. PRIMARY DIAGNOSES: 1. Aspiration pneumonitis. 2. Acute/subacute CVA. 3. Right knee and hip pain, chronic. 4. Elevated BNP. 5. Stercoral colitis. SECONDARY DIAGNOSES: 1. History of atrial fibrillation. 2. Hyperlipidemia. 3. Hypertension. 4. Osteoarthritis. 5. Dementia. 6. Gout. 7. Chronic kidney disease, 3. DISCHARGE MEDICATIONS: 1. Cholecalciferol 2000 units p.o. daily. 2. Namenda 10 mg p.o. b.i.d. 3. Coreg 25 mg p.o. b.i.d. 4. Ferrous sulfate 325 mg p.o. b.i.d. 5. Aricept 10 mg p.o. at bedtime. 6. Allopurinol 300 mg p.o. b.i.d. 7. Mag-Ox 400 mg p.o. daily. 8. Guaifenesin-dextromethorphan liquid 10 mL p.o. q.4 hours p.r.n. 9. MiraLAX 17 g p.o. daily. 10. Milk of magnesia 30 mL p.o. daily p.r.n. 11. Loratadine 10 mg p.o. daily p.r.n. 12. Tylenol 60 mg p.o. q.4 hours p.r.n. 13. [place] 5 one tablet q.8 hours p.r.n. 14. Ativan 0.5 mg p.o. daily p.r.n. 15. Potassium chloride 20 mEq p.o. daily. 16. Multivitamin one tablet p.o. daily. 17. Latanoprost eye drops, one drop each eye at bedtime. 18. Gabapentin 300 mg p.o. b.i.d. 19. Senokot one tablet p.o. b.i.d. DISCONTINUED MEDICATIONS: None. HISTORY OF PRESENT ILLNESS AND HOSPITAL COURSE: The patient is an 89-year-old male who currently lives at [facility] with a history of severe dementia, cardiomyopathy, anemia, CKD-3, COPD, who presented for an aspiration event at the senior care. He had an episode of vomiting at the senior care and subsequently was not acting himself and had a desaturation of 91%. In the ED, they noted a left-sided facial droop and a head CT showed an acute subacute stroke. The patient also reported significant right-sided hip and leg pain that has been chronic in nature. Imaging in the emergency department did not show any acute fractures, but was limited due to osteopenia. The patient was admitted to the floor for further evaluation and management. On the floor, the patient's antibiotics were discontinued due to likely aspiration pneumonitis and not leonardo pneumonia. A discussion was had with the daughter who is the [facility] regarding goals of care as the patient is a previous hospice patient and has had declining due to his dementia. Discussed with patient's daughter the new stroke, elevated BNP, possible right hip fracture, and discussed the options for further management of these new elements and daughter states that she wishes for no further workup to be done. The patient remained DNR and to return to [facility] under hospice care. The patient did have a manual disimpaction for stercoral colitis and had multiple bowel movements afterwards and was placed on a bowel regimen with regular bowel movements. Over the course of his hospitalization, patient was stable and had no acute events. On the day of discharge, the daughter decided to instead return to [facility], not on hospice. This was arranged. The patient was discharged back to [facility] in stable condition. Discharge plan discussed with the patient's daughter who voiced agreement and understanding, and all questions were answered. DISPOSITION: Stable. DISCHARGE INSTRUCTIONS: 1. Location: [facility]. 2. Diet: Mechanical soft as tolerated. 3. Activity as tolerated. 4. Followup: The patient is to follow up with primary care physician within one week of discharge. Job ID: [id number]
== END 2020-08-10 14:08 | DRG 64 ==
LOC: ERS 17:33 → 2SE 20:47
PROVIDERS: ADMIT Emergency Medicine; ATTEND Emergency Medicine
DX: I63.9 Cerebral infarction, unspecified (principal); J69.0 Pneumonitis due to inhalation of food and vomit; G93.41 Metabolic encephalopathy; I42.9 Cardiomyopathy, unspecified; I48.20 Chronic atrial fibrillation, unspecified; I50.32 Chronic diastolic (congestive) heart failure; I13.0 Hypertensive heart and chronic kidney disease with heart failure and stage 1 through stage 4 chronic kidney disease, or unspecified chronic kidney disease; Z23 Encounter for immunization; Z66 Do not resuscitate; Z51.5 Encounter for palliative care; Z20.828 Contact with and (suspected) exposure to other viral communicable diseases; M25.551 Pain in right hip; M25.561 Pain in right knee; G89.29 Other chronic pain; K52.89 Other specified noninfective gastroenteritis and colitis; E78.5 Hyperlipidemia, unspecified; N18.30 Chronic kidney disease, stage 3 unspecified; M19.90 Unspecified osteoarthritis, unspecified site; F03.90 Unspecified dementia, unspecified severity, without behavioral disturbance, psychotic disturbance, mood disturbance, and anxiety; M10.9 Gout, unspecified; D63.1 Anemia in chronic kidney disease; D50.9 Iron deficiency anemia, unspecified; R29.712 NIHSS score 12; R29.810 Facial weakness; R40.2412 Glasgow coma scale score 13-15, at arrival to emergency department; Z79.899 Other long term (current) drug therapy
CPT/HCPCS: 36415; 51701; 70450; 71045; 72170; 80053; 80061; 81003; 81015; 82550; 82553; 83605; 83735; 83880; 84443; 84484; 85025; 90471; 90662; 93005; 96365; 96375; G0008; J0456; J0696; J1650; J2543; J3490; U0002